=== PATIENT | female | born 1985 | race Caucasian/White ===

== ENCOUNTER 2017-11-01 15:11 | Outpatient (CLI) | payer BC ==
[2017-11-01 15:35] LABS: Appearance,Urine Clear (Clear); Bilirubin,Urine Negative (Negative); Blood,Urine Negative (Negative); Color,Urine Yellow; Glucose,Urine (UA) 3+ (Negative); Ketones,Urine 1+ (Negative); Leukocyte Esterase,Urine Negative (Negative); Nitrite,Urine Negative (Negative); PH, Urine 5.5 (5.0-8.0); Protein,Urine Trace (Negative); Specific Gravity,Urine 1.027 (1.001-1.035); Urobilinogen,Urine <2.0 mg/dL (<2.0)
[2017-11-01] MEDS ORDERED: ACETAMINOPHEN TAB 325 MG TAB PO STA (15:50)
[2017-11-01 16:15] LABS: Glucose,Whole Blood 168 mg/dL (75-99)
[2017-11-01] MEDS: LACTATED RINGERS 1,000 ML IV SCH ×2 (16:16→18:17)
[2017-11-01 17:14] VITALS: PULSE 96; RESP 17; TEMP 98.2
[2017-11-01 18:49] VITALS: BP 123/69
--- NOTE | 2017-12-21 10:47 | P.MSEPDOC ---
Presenting Problems - Arrival Data Date of Arrival on Unit: 11/01/17 Time of Arrival on Unit: 15:26 Mode of Transport: Ambulatory - Complaint OB-Reason for Admission/Chief Complaint: Headache, Other Comment: Patient to triage for persistent headache and abdominal cramping over the last three days. Medical History - Information : 1 Para: 0 Term: 0 : 0 Abortions: Spontaneous or Elective: 0 Number of Living Children: 0 - Gestational Age Gestational Age by FABIÁN (wks/days): 28 Weeks and 0 Days - History Complications: GDM Review of Systems - Review of Systems Constitutional: No problems Breast: No problems ENT: No problems Cardiovascular: No problems Respiratory: No problems Gastrointestinal: No problems Genitourinary: No problems Musculoskeletal: No problems Neurological: No problems Skin: No problems Vital Signs - Temperature Temperature: 98.2 F Temperature Source: Oral - Pulse Pulse Oximetery Pulse Rate: 96 Pulse Assessment Method: Pulse Oximetry - Respirations Respiratory Rate: 17 Oxygen Delivery Method: Room Air O2 Sat by Pulse Oximetry: 97 - Blood Pressure Right Arm Blood Pressure: 123/69 Blood Pressure Mean: 87 Blood Pressure Source: Automatic Cuff Medical Screen Scoring (Pre) - Cervical Exam Dilation: 0 cm = 0 Membranes: Intact - Uterine Contractions Frequency: N/A Duration: N/A Intensity: N/A - Maternal Vital Signs Maternal Temperature: N/A Maternal Blood Pressure: N/A Signs of Preeclampsia: N/A Maternal Respirations: N/A - Pain Assessment Pain Location and Character: Head, Abdomen Pain Scale Used: Numeric (1 - 10) Pain Intensity: 5 Pain Management Goal: 0 Pain Description: Cramping, Sharp Pain Radiation Location: n/a Pain Frequency: Intermittent Pain Duration: 3 Pain Duration Units: Days Pain Behavior: None Exhibited Effects of Pain: none Pain Aggravating Factors: None Pharmacological Interventions: Discuss Pain Med Options Non-Pharmacological Interventions: Darkened Room - Maternal Trauma Maternal Trauma: N/A - Assessment Baseline FHR: 140 Heart Rate - NICHD Category: Category I (Normal) = 0 NST: Reactive Position: N/A Station: N/A - Total Score Total Score (Pre): 0 - Level of Risk Level of Risk: Low (0-5) Physician Notification (Pre) - Physician Notified Physician Notified Date: 11/01/17 Physician Notified Time: 15:45 Physician/Practitioner Notifed:: Bernice Spoke With: Bernice New Order Received: Yes (see below) - Notification Comment Comment: Telephone orders received to perform acc-chek and call if greater than 200; administer 650mg regular tylenol; start IV and administer 1 liter LR fluid bolus. Call if patient does not begin to feel relief. Medical Screen Scoring (Post) - Cervical Exam Dilation: Exam Deferred Effacement: Exam Deferred Membranes: Intact - Uterine Contractions Frequency: N/A Duration: N/A Intensity: N/A - Maternal Vital Signs Maternal Temperature: N/A Maternal Blood Pressure: N/A Signs of Preeclampsia: N/A Maternal Respirations: N/A - Pain Assessment Pain Location and Character: Head, Abdomen Pain Scale Used: Numeric (1 - 10) Pain Intensity: 3 Pain Management Goal: 0 Pain Description: Cramping, Sharp Pain Radiation Location: none Pain Frequency: Intermittent Pain Duration: 3 Pain Duration Units: Days Pain Behavior: Vocalization Effects of Pain: none Pain Aggravating Factors: None Pharmacological Interventions: Discuss Pain Med Options Non-Pharmacological Interventions: Darkened Room - Maternal Trauma Maternal Trauma: N/A - Assessment Heart Rate: 135 Heart Rate - NICHD Category: Category I (Normal) = 0 NST: Reactive Position: N/A Station: N/A - Total Score Total Score (Post): 0 - Post Treatment Level of Risk Post Treatment Level of Risk: Low (0-5) Physician Notification (Post) - Physician Notified Physician Notified Date: 11/01/17 Physician Notified Time: 18:23 Physician/Practitioner Notified:: Bernice Spoke With: Bernice New Order Received: Yes (Discharge home) - Notification Comment Comment: Patient following up with Nive at scheduled appt tomorrow Disposition - Disposition OB Disposition: Discharge to home Discharge Date: 11/01/17 Discharge Time: 18:30 I agree with the RN Medical Screening Exam: Yes Risk & Benefit of care provided described in d/c instruction: Yes Diagnosis: RELATED CONDITIONS, UNSPECIFIED, SECOND TRIMESTER
== END 2017-11-01 18:30 | disposition home or self-care (01) ==
LOC: FBPOP 15:11
PROVIDERS: ATTEND Obstetrics & Gynecology
DX: O26.92 Pregnancy related conditions, unspecified, second trimester (principal); Z3A.28 28 weeks gestation of pregnancy
CPT/HCPCS: 59025; 81003; 82731; 99213

== ENCOUNTER 2017-11-23 10:54 | Outpatient (CLI) | payer BC ==
[2017-11-23 12:33] LABS: Appearance,Urine Clear (Clear); Bilirubin,Urine Negative (Negative); Blood,Urine Negative (Negative); Color,Urine Yellow; Glucose,Urine (UA) 1+ (Negative); Ketones,Urine Negative (Negative); Leukocyte Esterase,Urine Negative (Negative); Nitrite,Urine Negative (Negative); PH, Urine 5.5 (5.0-8.0); Protein,Urine Trace (Negative); Specific Gravity,Urine 1.022 (1.001-1.035); Urobilinogen,Urine <2.0 mg/dL (<2.0)
[2017-11-23 12:35] LABS: Basophils % (A) 0 %; Eosinophils % (A) 1 %; HCT 35.5 % (34.0-46.0); HGB 11.8 gm/dL (11.4-16.0); Lymphocytes # (A) 1.3 k/uL (1.0-4.8); Lymphocytes % (A) 17 %; MCH 28.4 pg (25.0-35.0); MCHC 33.4 g/dL (31.0-37.0); Mean Platelet Volume 10.1; Monocytes # (A) 0.4 k/uL (0-1.0); Monocytes % (A) 5 %; Neutrophils # (A) 6.1 k/uL (1.3-7.7); Neutrophils % (A) 77 %; Platelet Count 153 k/uL (150-450); RBC 4.18 m/uL (3.80-5.40); RDW 13.8 % (11.5-15.5); WBC 7.9 k/uL (3.8-10.6)
[2017-11-23 12:44] LABS: Uric Acid 1.9 mg/dL (3.7-7.4)
[2017-11-23 13:28] VITALS: RESP 18; TEMP 98.2
[2017-11-23 13:31] VITALS: BP 96/61; PULSE 68
--- NOTE | 2017-12-21 10:51 | P.MSEPDOC ---
Presenting Problems - Arrival Data Date of Arrival on Unit: 11/23/17 Time of Arrival on Unit: 10:54 Mode of Transport: Ambulatory - Complaint OB-Reason for Admission/Chief Complaint: PIH Medical History - Information : 1 Para: 0 Term: 0 : 0 Abortions: Spontaneous or Elective: 0 Number of Living Children: 0 - Gestational Age Gestational Age by FABIÁN (wks/days): 31 Weeks and 1 Days - History Complications: GDM Review of Systems - Review of Systems Constitutional: No problems Breast: No problems ENT: No problems Cardiovascular: No problems Respiratory: No problems Gastrointestinal: No problems Genitourinary: No problems Musculoskeletal: No problems Neurological: No problems Skin: No problems Vital Signs - Temperature Temperature: 98.2 F Temperature Source: Temporal Artery Scan - Pulse Right Brachial Pulse Rate: 68 Pulse Assessment Method: Automatic Cuff - Respirations Respiratory Rate: 18 Oxygen Delivery Method: Room Air - Blood Pressure Right Arm Blood Pressure: 96/61 Blood Pressure Mean: 72 Blood Pressure Source: Automatic Cuff Medical Screen Scoring (Pre) - Cervical Exam Dilation: Exam Deferred Effacement: Exam Deferred Membranes: Intact - Uterine Contractions Frequency: N/A Duration: N/A Intensity: N/A - Maternal Vital Signs Maternal Temperature: N/A Maternal Blood Pressure: N/A Signs of Preeclampsia: Headache = 1, Nausea/Vomiting = 1 Maternal Respirations: N/A - Pain Assessment Pain Scale Used: Numeric (1 - 10) Pain Intensity: 0 - Assessment Baseline FHR: 130 Heart Rate - NICHD Category: Category I (Normal) = 0 NST: Reactive Position: N/A Station: N/A - Total Score Total Score (Pre): 2 - Level of Risk Level of Risk: Low (0-5) Physician Notification (Pre) - Physician Notified Physician Notified Date: 11/23/17 Physician Notified Time: 12:10 Physician/Practitioner Notifed:: Dr Santizo Spoke With: Dr. Santizo New Order Received: Yes - Notification Comment Comment: obtain PIH labs Medical Screen Scoring (Post) - Cervical Exam Dilation: Exam Deferred Effacement: Exam Deferred Membranes: Intact - Uterine Contractions Frequency: N/A Duration: N/A Intensity: N/A - Maternal Vital Signs Maternal Temperature: N/A Maternal Blood Pressure: N/A Signs of Preeclampsia: N/A Maternal Respirations: N/A - Pain Assessment Pain Intensity: 0 - Maternal Trauma Maternal Trauma: N/A - Assessment Heart Rate: 130 Heart Rate - NICHD Category: Category I (Normal) = 0 NST: Reactive Position: N/A - Total Score Total Score (Post): 0 - Post Treatment Level of Risk Post Treatment Level of Risk: N/A Physician Notification (Post) - Physician Notified Physician Notified Date: 11/23/17 Physician Notified Time: 12:45 Physician/Practitioner Notified:: Dr Swain Spoke With: Dr. Santizo New Order Received: Yes - Notification Comment Comment: follow up in office tomorrow at scheduled appt, bring blood pressure machine with her to have it checked in the office Disposition - Disposition OB Disposition: Triage, Discharge to home, Written follow up instructions reviewed Discharge Date: 11/23/17 Discharge Time: 13:15 I agree with the RN Medical Screening Exam: Yes Risk & Benefit of care provided described in d/c instruction: Yes Diagnosis: RELATED CONDITIONS, UNSPECIFIED, THIRD TRIMESTER
== END 2017-11-23 13:15 | disposition home or self-care (01) ==
LOC: FBPOP 10:54
PROVIDERS: ATTEND Obstetrics & Gynecology
DX: O26.93 Pregnancy related conditions, unspecified, third trimester (principal); Z3A.31 31 weeks gestation of pregnancy
CPT/HCPCS: 59025; 81003; 84450; 84460; 84550; 85025; 99215

== ENCOUNTER 2017-12-21 15:59 | Outpatient (CLI) | payer BC ==
[2017-12-21 16:27] VITALS: BP 140/86; PULSE 68; RESP 16; TEMP 97.4
[2017-12-21 16:54] LABS: Basophils % (A) 0 %; Eosinophils % (A) 0 %; HCT 34.2 % (34.0-46.0); HGB 11.7 gm/dL (11.4-16.0); Lymphocytes # (A) 1.7 k/uL (1.0-4.8); Lymphocytes % (A) 18 %; MCH 28.1 pg (25.0-35.0); MCHC 34.2 g/dL (31.0-37.0); MCV 82.3 fL (80.0-100.0); Mean Platelet Volume 10.2; Monocytes # (A) 0.4 k/uL (0-1.0); Monocytes % (A) 5 %; Neutrophils # (A) 6.9 k/uL (1.3-7.7); Neutrophils % (A) 75 %; Platelet Count 155 k/uL (150-450); RBC 4.15 m/uL (3.80-5.40); RDW 14.3 % (11.5-15.5); WBC 9.3 k/uL (3.8-10.6)
[2017-12-21 16:57] LABS: Appearance,Urine Clear (Clear); Bacteria,Urine Rare /hpf; Bilirubin,Urine Negative (Negative); Blood,Urine Negative (Negative); Color,Urine Yellow; Glucose,Urine (UA) Negative (Negative); Ketones,Urine Negative (Negative); Leukocyte Esterase,Urine Negative (Negative); Mucus,Urine Few /hpf; Nitrite,Urine Negative (Negative); Protein,Urine 1+ (Negative); Specific Gravity,Urine 1.025 (1.001-1.035); Squamous Epithelial Cell,Urine <1 /hpf (0-4); Urobilinogen,Urine <2.0 mg/dL (<2.0); WBC,Urine 2 /hpf (0-5)
[2017-12-21 17:00] LABS: ALT 38 U/L (9-52); AST 28 U/L (14-36); Blood Urea Nitrogen 12 mg/dL (7-17); LDH 472 U/L (313-618); Uric Acid 3.3 mg/dL (3.7-7.4)
--- NOTE | 2017-12-31 09:57 | P.MSEPDOC ---
Presenting Problems - Arrival Data Date of Arrival on Unit: 12/21/17 Time of Arrival on Unit: 16:04 Mode of Transport: Wheelchair - Complaint Comment: Pt seen in office and sent to L&D for preeclampsia work up, pt had elevated blood pressure in office, 160/100 Medical History - Information : 1 Para: 0 Term: 0 : 0 Abortions: Spontaneous or Elective: 0 Number of Living Children: 0 - Gestational Age Gestational Age by FABIÁN (wks/days): 35 Weeks and 1 Days - History Complications: GDM Review of Systems - Review of Systems Constitutional: No problems Breast: No problems ENT: Nasal congestion Cardiovascular: No problems Respiratory: Wheezing Gastrointestinal: Constipation Genitourinary: No problems Musculoskeletal: No problems Neurological: No problems Skin: No problems Vital Signs - Temperature Temperature: 97.4 F Temperature Source: Temporal Artery Scan - Pulse Pulse Oximetery Pulse Rate: 68 Pulse Assessment Method: Automatic Cuff - Respirations Respiratory Rate: 16 Oxygen Delivery Method: Room Air O2 Sat by Pulse Oximetry: 97 - Blood Pressure Right Arm Blood Pressure: 140/86 Blood Pressure Mean: 104 Blood Pressure Source: Automatic Cuff Medical Screen Scoring (Pre) - Cervical Exam Dilation: Exam Deferred Effacement: Exam Deferred Membranes: Intact - Uterine Contractions Frequency: N/A Duration: N/A Intensity: N/A - Maternal Vital Signs Maternal Temperature: N/A Maternal Respirations: N/A - Pain Assessment Pain Scale Used: Numeric (1 - 10) Pain Intensity: 0 - Maternal Trauma Maternal Trauma: N/A - Assessment Baseline FHR: 120 Heart Rate - NICHD Category: Category I (Normal) = 0 NST: Reactive Position: N/A Station: N/A - Total Score Total Score (Pre): 0 - Level of Risk Level of Risk: Low (0-5) Physician Notification (Pre) - Notification Comment Comment: Discharge order recieved by Dr Bucio Disposition - Disposition OB Disposition: Discharge to home Discharge Date: 12/21/17 Discharge Time: 17:26 I agree with the RN Medical Screening Exam: Yes Risk & Benefit of care provided described in d/c instruction: Yes Diagnosis: GESTATIONAL HTN W/O SIGNIFICANT PROTEINURIA, THIRD TRIMESTER
== END 2017-12-21 17:26 ==
LOC: FBPOP 15:59
PROVIDERS: ATTEND Obstetrics & Gynecology Obstetrics
DX: O13.3 Gestational [pregnancy-induced] hypertension without significant proteinuria, third trimester (principal); Z3A.35 35 weeks gestation of pregnancy
CPT/HCPCS: 81001; 82565; 83615; 84450; 84460; 84520; 84550; 85025; 99215

== ENCOUNTER 2018-01-03 16:58 | Inpatient (IN) | payer BC ==
[2018-01-03 18:36] LABS: Appearance,Urine Clear (Clear); Bacteria,Urine Rare /hpf; Bilirubin,Urine Negative (Negative); Blood,Urine Negative (Negative); Color,Urine Yellow; Glucose,Urine (UA) Negative (Negative); Ketones,Urine Negative (Negative); Leukocyte Esterase,Urine Negative (Negative); Mucus,Urine Few /hpf; Nitrite,Urine Negative (Negative); PH, Urine 6.5 (5.0-8.0); Protein,Urine 3+ (Negative); RBC,Urine <1 /hpf (0-5); Specific Gravity,Urine 1.022 (1.001-1.035); Squamous Epithelial Cell,Urine 1 /hpf (0-4); WBC,Urine 1 /hpf (0-5)
[2018-01-03 18:51] LABS: Basophils % (A) 0 %; Eosinophils # (A) 0.1 k/uL (0-0.7); Eosinophils % (A) 1 %; HCT 33.9 % (34.0-46.0); HGB 11.6 gm/dL (11.4-16.0); Lymphocytes # (A) 1.7 k/uL (1.0-4.8); Lymphocytes % (A) 21 %; MCH 28.6 pg (25.0-35.0); MCHC 34.2 g/dL (31.0-37.0); MCV 83.5 fL (80.0-100.0); Mean Platelet Volume 11.6; Monocytes # (A) 0.4 k/uL (0-1.0); Monocytes % (A) 5 %; Neutrophils # (A) 5.8 k/uL (1.3-7.7); Neutrophils % (A) 71 %; Platelet Count 153 k/uL (150-450); RBC 4.05 m/uL (3.80-5.40); RDW 14.4 % (11.5-15.5); WBC 8.2 k/uL (3.8-10.6)
[2018-01-03 19:05] LABS: Uric Acid 3.3 mg/dL (3.7-7.4)
[2018-01-03 19:18] LABS: Glucose,Whole Blood 71 mg/dL (75-99)
[2018-01-03 19:26] LABS: Large Platelets Present
[2018-01-03 19:28] LABS: Polychromasia Present
[2018-01-03] MEDS ORDERED: TERBUTALINE 1 MG/ML VIAL SQ PRN ×2 (19:37→20:32)
[2018-01-03] MEDS ORDERED: OXYTOCIN 10 UNIT/ML 1 ML VIAL IM PRN ×2 (19:37→20:32)
[2018-01-03] MEDS ORDERED: CARBOPROST TROMETHAMINE 250 MCG/ML 1 ML AMP IM PRN ×2 (19:37→20:32)
[2018-01-03] MEDS ORDERED: LIDOCAINE 1% (PF) 10 MG/ML (30 ML SDV) SQ PRN ×2 (19:37→20:32)
[2018-01-03] MEDS ORDERED: METHYLERGONOVINE 0.2 MG/ML 1 ML AMP IM PRN ×2 (19:37→20:32)
[2018-01-03] MEDS ORDERED: DINOPROSTONE 10 MG INSERT.ER VAGINAL ONE (20:02)
[2018-01-03 20:27] VITALS: BMI 45.1
[2018-01-03] MEDS: LACTATED RINGERS 1,000 ML IV SCH (20:27)
--- NOTE | 2018-01-03 20:32 | P.HPOB ---
History of Present Illness H&P Date: 01/03/18 Chief Complaint: IUP @ 37 0/7 weeks, preeclampsia This is a 32 yo @ 37 weeks that presents from the office after elevated BP were noted, 140's/90's. she denies tolentino, visual changes or abdominal pain. On blood pressures in triage here on OB her blood pressures were noted to be 140s to 170s over 90s to 100. She was also noted to have 3+ proteinuria. She has been being watched for blood pressure in this and had labs done on 12/21 that were all normal in nature. She does have been elevated EFW at the 97th percentile, and polyhydramnios at 25 on that same date. Of note she is a gestational diabetic on insulin which was discontinued proximally 2 weeks ago for low blood sugars. Patient states that she has been continuing to follow the diabetic diet and her blood sugars have been lower over the last 2 weeks. Patient denies contractions today, notes good movement, no loss of fluid or vaginal bleeding. On blood work blood type of O+, rubella immune, RPR nonreactive, hepatitis B surface antigen negative, HIV negative, as stated above known gestational diabetic diet controlled currently Review of Systems Constitutional: Denies chills, Denies chronic headaches, Denies fatigue, Denies fever Eyes: bilateral loss of peripheral vision, bilateral tunnel vision/blind spots Ears, nose, mouth and throat: Denies headache Cardiovascular: Reports edema Respiratory: Denies cough, Denies dyspnea Gastrointestinal: Denies constipation, Denies diarrhea, Denies nausea, Denies vomiting Genitourinary: Reports Psychiatric: Reports anxiety, Reports depression Past Medical History Past Medical History: No Reported History Additional Past Medical History / Comment(s): Gestational diabetes 08/18/17 History of Any Multi-Drug Resistant Organisms: None Reported Past Surgical History: Orthopedic Surgery Smoking Status: Never smoker Medications and Allergies Home Medications Medication Instructions Recorded Confirmed Type Pnv,Calcium 72/Iron/Folic Acid 1 tab PO DAILY 06/17/17 12/21/17 History [ Plus Tablet] Insulin Lispro [humaLOG] 2 - 4 units SQ AC-TID 11/23/17 01/03/18 History Allergies Allergy/AdvReac Type Severity Reaction Status Date / Time bupropion [From Contrave] Allergy Rash/Hives Verified 12/21/17 16:01 naltrexone [From Contrave] Allergy Rash/Hives Verified 12/21/17 16:01 Exam Osteopathic Statement: *. No significant issues noted on an osteopathic structural exam other than those noted in the History and Physical/Consult. Vital Signs Temp Pulse Resp BP Pulse Ox 01/03/18 17:20 99.1 F 90 20 144/92 98 Intake and Output 01/03/18 01/03/18 01/03/18 06:59 14:59 22:59 Other: Weight 127.006 kg - OBG Physical Exam Abdomen: Gravid and appropriate for gestational age Cervix: 1/0/hi Uterus: enlarged Results Result Diagrams: 01/03/18 18:39 Abnormal Lab Results - Last 24 Hours (Table) 01/03/18 01/03/18 01/03/18 Range/Units 17:55 18:39 18:39 Hct 33.9 L (34.0-46.0) % POC Glucose (mg/dL) (75-99) mg/dL Uric Acid 3.3 L (3.7-7.4) mg/dL Urine Protein 3+ H (Negative) Urine Bacteria Rare H (None) /hpf Urine Mucus Few H (None) /hpf 01/03/18 Range/Units 19:15 Hct (34.0-46.0) % POC Glucose (mg/dL) 71 L (75-99) mg/dL Uric Acid (3.7-7.4) mg/dL Urine Protein (Negative) Urine Bacteria (None) /hpf Urine Mucus (None) /hpf Assessment and Plan (1) Preeclampsia Current Visit: Yes Status: Acute Code(s): O14.90 - UNSPECIFIED PRE-ECLAMPSIA , UNSPECIFIED TRIMESTER SNOMED Code(s): 078323185 (2) GDM (gestational diabetes mellitus) Current Visit: Yes Status: Acute Code(s): O24.419 - GESTATIONAL DIABETES MELLITUS IN , UNSP CONTROL SNOMED Code(s): 11042998 (3) Obesity Current Visit: Yes Status: Acute Code(s): E66.9 - OBESITY, UNSPECIFIED SNOMED Code(s): 546174367 Plan: Given her elevated blood pressures and 3+ proteinuria Will admit for induction of labor. Plan is reviewed with the patient in detail and Cervidil induction is started. We will monitor blood pressures closely. Stadol would be ordered along with epidural per pt request. All questions are answered patient states understanding.
[2018-01-03] MEDS ORDERED: BUTORPHANOL 1 MG/ML 1 ML VIAL IV PRN (20:35)
[2018-01-03] MEDS ORDERED: LABETALOL 5 MG/ML VIAL MDV IVP STA (20:36)
[2018-01-03] MEDS ORDERED: LACTATED RINGERS 1,000 ML IV SCH (20:45)
[2018-01-03] MEDS ORDERED: AMPICILLIN 2,000 MG in SODIUM CHLORIDE 0.9% 100 ML IVPB ONE (23:00)
[2018-01-04 01:02] LABS: Hemoglobin A1C 5.8 % (4.0-6.0)
[2018-01-04] MEDS: AMPICILLIN 1,000 MG in SODIUM CHLORIDE 0.9% 50 ML IVPB SCH ×2 (03:49→10:48)
[2018-01-04] MEDS ORDERED: ACETAMINOPHEN IV (For NPO) 1,000 MG in EMPTY BAG 1 BAG IVPB ONE (04:04)
[2018-01-04] MEDS: LACTATED RINGERS 1,000 ML IV SCH ×3 (04:49→20:08)
[2018-01-04] MEDS: OXYTOCIN 20 UNITS/1000 ML NS 1,000 ML IV SCH ×2 (05:24→20:06)
[2018-01-04 05:46] LABS: Glucose,Whole Blood 81 mg/dL (75-99)
[2018-01-04] MEDS ORDERED: LIDOCAINE URO-JET JELLY 2% 5 ML KIT URETHRAL ONE (12:36)
[2018-01-04] MEDS ORDERED: OXYTOCIN 10 UNIT/ML 1 ML VIAL ONE (15:04)
[2018-01-04] MEDS ORDERED: NALBUPHINE 10 MG/ML VIAL (10ML MDV) ONE (15:04)
[2018-01-04] MEDS ORDERED: MORPHINE SULFATE (PF) 0.3 MG/0.3 ML SYR ONE (15:04)
[2018-01-04] MEDS ORDERED: CARBOPROST TROMETHAMINE 250 MCG/ML 1 ML AMP IM ONE (15:04)
[2018-01-04] MEDS ORDERED: ONDANSETRON 4 MG/2 ML VIAL ONE (15:04)
[2018-01-04] MEDS ORDERED: MORPHINE SULFATE 2 MG/ML SYRINGE IVP PRN (15:45)
[2018-01-04] MEDS ORDERED: NALOXONE 0.4 MG/ML 1 ML VIAL IV PRN (15:45)
[2018-01-04] MEDS ORDERED: diphenhydrAMINE 50 MG/ML 1 ML VIAL IVP PRN (15:45)
[2018-01-04] MEDS ORDERED: MAGNESIUM SULFATE WATER PMX IVPB STA (17:03)
[2018-01-04] MEDS ORDERED: WATER FOR INJECTION IVPB STA (17:03)
[2018-01-04] MEDS ORDERED: CITRIC ACID-SODIUM CITRATE 15 ML CUP PO ONE (17:15)
[2018-01-04] MEDS ORDERED: LACTATED RINGERS 1,000 ML IV ONE (17:15)
[2018-01-04] MEDS: ONDANSETRON 4 MG/2 ML VIAL IVP PRN (19:26)
[2018-01-04] MEDS ORDERED: hydrALAZINE HCL 20 MG/ML 1 ML VIAL IVP PRN (19:53)
[2018-01-04] MEDS: MAGNESIUM SULFATE-WATER PMX 20 GM in WATER FOR INJECTION 1 500ML.BAG IV SCH (20:07)
[2018-01-04] MEDS ORDERED: hydrALAZINE HCL 20 MG/ML 1 ML VIAL IVP ONE (20:39)
[2018-01-04] MEDS ORDERED: NIFEdipine XL 30 MG TAB.ER.24 PO SCH (21:45)
[2018-01-05] MEDS: AMPICILLIN 1,000 MG in SODIUM CHLORIDE 0.9% 50 ML IVPB SCH (02:48)
[2018-01-05] MEDS: OXYTOCIN 20 UNITS/1000 ML NS 1,000 ML IV SCH ×2 (02:49)
[2018-01-05] MEDS: ONDANSETRON 4 MG/2 ML VIAL IVP PRN (03:14)
[2018-01-05] MEDS: MAGNESIUM SULFATE-WATER PMX 20 GM in WATER FOR INJECTION 1 500ML.BAG IV SCH (04:14)
[2018-01-05] MEDS: LACTATED RINGERS 1,000 ML IV SCH (05:55)
[2018-01-05] MEDS ORDERED: LACTATED RINGERS 500 ML IV SCH (10:15)
--- NOTE | 2018-01-05 10:28 | P.PNOBGPC ---
Subjective - Subjective Principal diagnosis: Preeclampsia Interval history: Complains of feeling dizzy when she was briefly up out of bed. Nausea has resolved. She tolerated some clear liquids this morning. Denies headaches, visual changes, upper abdominal pain, nausea, vomiting, shortness of breath, chest pain. Patient reports: Reports appetite normal, Reports pain well controlled, Denies voiding normally, Denies ambulating normally, Denies nauseated : doing well Objective - Vital Signs Latest vital signs: Vital Signs Temp Pulse Resp BP Pulse Ox 01/05/18 08:00 97.6 F 88 16 128/74 96 01/05/18 06:00 20 01/05/18 03:20 97.5 F L 92 20 152/81 96 01/05/18 01:45 18 01/04/18 23:39 98 F 109 H 20 141/70 95 01/04/18 22:00 20 01/04/18 20:45 95 01/04/18 19:10 99.0 F 98 20 150/77 95 Intake and Output 01/04/18 01/05/18 01/05/18 22:59 06:59 14:59 Output Total 1050 400 300 Balance -1050 -400 -300 Output: Urine 350 400 300 Estimated Blood Loss 700 Other: Voiding Method Indwelling Catheter Indwelling Catheter # Emeses 1 1 - Exam Lungs: bilateral: normal Extremities: Present: edema (Tense, 3+. DTRs 1+.) Abdomen: Present: soft, other (Obese) Incision: Present: normal, dry, intact, dressed Uterus: Present: normal, firm. Absent: tenderness Assessment and Plan (1) GDM (gestational diabetes mellitus) Current Visit: Yes Status: Acute Code(s): O24.419 - GESTATIONAL DIABETES MELLITUS IN , UNSP CONTROL SNOMED Code(s): 65210386 (2) Obesity Current Visit: Yes Status: Acute Code(s): E66.9 - OBESITY, UNSPECIFIED SNOMED Code(s): 387508175 (3) Preeclampsia Current Visit: Yes Status: Acute Code(s): O14.90 - UNSPECIFIED PRE-ECLAMPSIA , UNSPECIFIED TRIMESTER SNOMED Code(s): 157710182 (4) S/P section Current Visit: Yes Status: Acute Code(s): Z98.891 - HISTORY OF UTERINE SCAR FROM PREVIOUS SURGERY SNOMED Code(s): 482815515 (5) Polyhydramnios Current Visit: Yes Status: Acute Code(s): O40.9XX0 - POLYHYDRAMNIOS, UNSP TRIMESTER, NOT APPLICABLE OR UNSP SNOMED Code(s): 78753618 Plan: Currently on magnesium sulfate 2 g/h, nifedipine 30 mg every day. Blood pressures have ranged from the 120s to 150s over 70s and 80s. She is asymptomatic. Her urine output is low which I believe is more a function of inadequate fluid resuscitation, not sign of severe preeclampsia. Fluid bolus now, increase oral fluid intake. Will decrease magnesium to 1 g per hour and light of low urine output. Repeat labs now. Plan is to discontinue magnesium at 24 hours assuming clinical picture remains stable. She will likely need an increase in her Procardia from 30 mg to 60 mg.
[2018-01-05] MEDS ORDERED: LACTATED RINGERS 1,000 ML IV SCH (11:30)
[2018-01-05 11:35] LABS: HCT 32.8 % (34.0-46.0); HGB 11.1 gm/dL (11.4-16.0); MCH 28.2 pg (25.0-35.0); MCHC 33.9 g/dL (31.0-37.0); MCV 83.2 fL (80.0-100.0); Mean Platelet Volume 11.5; RBC 3.94 m/uL (3.80-5.40); RDW 14.7 % (11.5-15.5); WBC 14.1 k/uL (3.8-10.6)
[2018-01-05 11:43] LABS: ALT 31 U/L (9-52); AST 44 U/L (14-36); Blood Urea Nitrogen 9 mg/dL (7-17); Platelet Count 164 k/uL (150-450); Uric Acid 4.2 mg/dL (3.7-7.4)
[2018-01-05] MEDS ORDERED: diphenhydrAMINE 50 MG CAP PO PRN (12:19)
[2018-01-05] MEDS ORDERED: diphenhydrAMINE 25 MG CAP PO PRN (12:19)
[2018-01-05] MEDS ORDERED: METOCLOPRAMIDE 5 MG/ML 2 ML VIAL IVP PRN (12:19)
[2018-01-05] MEDS ORDERED: ZOLPIDEM 5 MG TAB PO PRN (12:19)
[2018-01-05] MEDS ORDERED: diphenhydrAMINE 50 MG/ML 1 ML VIAL IVP PRN ×2 (12:19)
[2018-01-05] MEDS ORDERED: SIMETHICONE 80 MG CHEWABLE PO PRN (12:19)
[2018-01-05] MEDS ORDERED: ACETAMINOPHEN TAB 325 MG TAB PO PRN (12:19)
[2018-01-05] MEDS: HYDROcodone/APAP 5-325MG 1 EACH TAB PO PRN ×2 (14:21→21:04)
--- NOTE | 2018-01-05 18:17 | P.PN ---
Progress Note - Text Date: 01/05/2018 Time: 17:53 The patient is status post section Vital signs stable VAS: 0-10 Patient has no complaints of pain. The patient incurred some minimal itching yesterday, this itching is now subsiding. Pain meds to be managed by service.
[2018-01-05] MEDS: IBUPROFEN 600 MG TAB PO PRN (18:38)
[2018-01-05] MEDS ORDERED: NIFEdipine XL 30 MG TAB.ER.24 PO SCH (21:00)
[2018-01-05] MEDS: SENNOSIDES-DOCUSATE SODIUM 1 EACH TAB PO SCH (21:05)
[2018-01-06] MEDS: IBUPROFEN 600 MG TAB PO PRN ×3 (05:11→20:54)
--- NOTE | 2018-01-06 07:24 | P.PN ---
Subjective Progress Note Date: 01/06/18 Slept well. Positive flatus. No headache visual changes or right upper quadrant pain. Urinating frequently. Objective - Vital Signs Vital signs: Vital Signs Temp 98.3 F 01/06/18 00:00 Pulse 93 01/06/18 00:00 Resp 16 01/06/18 06:00 BP 141/92 01/06/18 04:00 Pulse Ox 97 01/06/18 04:00 Intake & Output 01/05/18 01/06/18 01/06/18 18:59 06:59 18:59 Intake Total 200 400 Output Total 1700 2275 Balance -1500 -1875 Intake: IV 200 Lactated Ringers 1,000 ml 200 @ 100 mls/hr IV .Q10H LEATHA Rx#:[id number] Oral 400 Output: Urine 1700 2275 Other: # Voids 1 - Constitutional General appearance: Present: morbidly obese - EENT Eyes: Present: PERRLA ENT: Present: hearing grossly normal - Neck Neck: Present: normal ROM - Respiratory Respiratory: bilateral: CTA - Cardiovascular Rhythm: regular - Gastrointestinal General gastrointestinal: Present: normal bowel sounds - Genitourinary Genitourinary Comment(s): Incision clean and dry, well approximated, Steri-Strips applied. - Integumentary Integumentary Comment(s): 2-3+ edema, normal reflexes at +1 bilaterally. Integumentary: Present: normal - Neurologic Neurologic: Present: CNII-XII intact - Musculoskeletal Musculoskeletal: Present: gait normal, strength equal bilaterally - Psychiatric Psychiatric: Present: A&O x's 3, appropriate affect, intact judgment & insight - Labs CBC & Chem 7: 01/05/18 11:20 01/05/18 11:20 Labs: Abnormal Lab Results - Last 24 Hours (Table) 01/05/18 01/05/18 Range/Units 11:20 11:20 WBC 14.1 H (3.8-10.6) k/uL Hgb 11.1 L (11.4-16.0) gm/dL Hct 32.8 L (34.0-46.0) % AST 44 H (14-36) U/L Assessment and Plan Assessment: Postoperative day #2, doing well. Plan: Continue postoperative care today. Circumcision now. Likely discharge home tomorrow on Procardia. Time with Patient: Less than 30
[2018-01-06] MEDS: HYDROcodone/APAP 5-325MG 1 EACH TAB PO PRN (11:24)
[2018-01-06] MEDS: SENNOSIDES-DOCUSATE SODIUM 1 EACH TAB PO SCH ×2 (20:43→20:56)
[2018-01-06 21:07] VITALS: RESP 18
[2018-01-07] MEDS: IBUPROFEN 600 MG TAB PO PRN (04:47)
[2018-01-07 07:51] VITALS: BP 136/83; PULSE 75; TEMP 98.6
[2018-01-07] MEDS: SENNOSIDES-DOCUSATE SODIUM 1 EACH TAB PO SCH (08:10)
--- NOTE | 2018-01-07 08:33 | P.DS ---
Providers Date of admission: 01/03/18 19:38 Expected date of discharge: 01/07/18 Attending physician: Lynn Santizo Primary care physician: Stated None Hospital Course: Is a 32-year-old white female 1 para 0 EDC 01/24/2018 at 37 weeks gestation. Patient presented to labor and delivery for induction for - induced hypertension. Initial blood pressure 155/77. Her is remarkable for large for gestational age fetus, gestational diabetes, polyhydramnios, and maternal obesity. She also had positive group B strep cultures. Please see dictated history and physical for details. Cytotec was placed, labor was commenced using oxytocin the following morning. Patient had arrest of dilatation and descent and decision was made to proceed with section. She underwent a primary low transverse section and gave to a liveborn male infant with scores of 9 and 9 at one and 5 minutes. She had a nuchal cord 1 that was reduced. weighed 4220 g or 9 lbs. 5 oz. Please see dictated operative note for details. Postoperatively patient was managed with magnesium sulfate for 24 hours. Blood pressures remained elevated, they stabilized on Procardia 60 mg XL once daily. Blood pressure this morning is stable in the 130s over 80s. Patient denies headache visual changes or right upper quadrant pain. Circumcision on her has been performed. Extremities still reveal +2 edema, normal reflexes. Fundus is firm and in the midline, symmetric and 18 week size. Chest is clear. Incision is clean and dry, intact with Steri-Strips applied. Patient is being discharged home this morning in good condition. I have given her prescription for Procardia XL 60 mg to continue taking once every morning. She will take her blood pressure readings every morning and presented to the office with me in 1 week for review. I've given her prescription for breast pump. She will continue taking her vitamins daily. She will call with any fevers shakes or chills, foul smelling or copious lochia, passage of large blood clots, with any redness drainage or tenderness of the incision, or indeed with any problems difficulties or concerns. She is reminded of the symptoms of preeclampsia as well as. Patient Condition at Discharge: Good Plan - Discharge Summary Discharge Rx Participant: No New Discharge Prescriptions: No Action Pnv,Calcium 72/Iron/Folic Acid [ Plus Tablet] 1 tab PO DAILY Insulin Lispro [humaLOG] 2 - 4 units SQ AC-TID Discharge Medication List Pnv,Calcium 72/Iron/Folic Acid [ Plus Tablet] 1 tab PO DAILY 06/17/17 [ History] Insulin Lispro [humaLOG] 2 - 4 units SQ AC-TID 11/23/17 [History] Follow up Appointment(s)/Referral(s): Lynn Santizo MD [STAFF PHYSICIAN] - 1 Week
== END 2018-01-07 10:15 | disposition home or self-care (01) | DRG 765 ==
LOC: FBPOP 16:58 → 4FBP 19:38
PROVIDERS: ADMIT Obstetrics & Gynecology Obstetrics; ATTEND Obstetrics & Gynecology
PROC: 10D00Z1 Extraction of Products of Conception, Low, Open Approach (ICD-10-PCS; principal; 2018-01-03)
DX: O14.94 Unspecified pre-eclampsia, complicating childbirth (principal); O40.3XX0 Polyhydramnios, third trimester, not applicable or unspecified; E66.01 Morbid (severe) obesity due to excess calories; O61.0 Failed medical induction of labor; O69.81X0 Labor and delivery complicated by cord around neck, without compression, not applicable or unspecified; O24.429 Gestational diabetes mellitus in childbirth, unspecified control; O99.214 Obesity complicating childbirth; O99.824 Streptococcus B carrier state complicating childbirth; O36.63X0 Maternal care for excessive fetal growth, third trimester, not applicable or unspecified; Z37.0 Single live birth; Z3A.37 37 weeks gestation of pregnancy
CPT/HCPCS: 59025; 81001; 82565; 83036; 84450; 84460; 84520; 84550; 85025; 85027; 88307; 99213

== ENCOUNTER 2018-03-21 21:19 | Emergency (ER) | payer SELFPAY ==
[2018-03-21] MEDS ORDERED: MORPHINE SULFATE 4 MG/ML SYRINGE IM STA (22:32)
--- NOTE | 2018-03-21 23:03 | XR ---
EXAMINATION TYPE: XR lumbosacral spine min 4V DATE OF EXAM: 03/21/2018 COMPARISON: NONE HISTORY: Pain TECHNIQUE: 5 views FINDINGS: The vertebra have normal alignment. Posterior most are intact. Sacroiliac joints are normal . There is no compression fracture. IMPRESSION: Negative lumbar spine exam.
[2018-03-21] MEDS ORDERED: ACET/COD 300 MG/30 MG STARTER PACK 6 TAB BTL PO STA (23:18)
--- NOTE | 2018-03-21 23:18 | ED ---
Back Pain HPI - General Source: patient, family, RN notes reviewed Limitations: no limitations <Tez Waite - Last Filed: 03/21/18 23:15> <Halima Sandra - Last Filed: 03/22/18 22:58> - General Chief Complaint: Back Pain/Injury Stated Complaint: back pain/trouble walking Time Seen by Provider: 03/21/18 22:07 - History of Present Illness Initial Comments: 32-year-old female presents emergency Department with chief complaint of low back pain. Patient states that she's had pain ever since her spinal for her C- section. Patient states though the pain today is different she states that she went to move a dresser and has low back pain along her lumbar, sacral region. Patient denies any bowel bladder incontinence or retention. Patient states the pain is worse with movement and much better when laying flat. Patient states that she has no lower extremity weakness, paresthesias. She denies any abdominal pain including nausea vomiting diarrhea constipation (Tez Waite) - Related Data Previous Rx's Medication Instructions Recorded Cyclobenzaprine [Flexeril] 10 mg PO TID PRN #15 tab 03/21/18 Ibuprofen [Motrin] 600 mg PO Q8HR PRN #30 tab 03/21/18 Allergies Allergy/AdvReac Type Severity Reaction Status Date / Time bupropion [From Contrave] Allergy Rash/Hives Verified 03/21/18 23:13 naltrexone [From Contrave] Allergy Rash/Hives Verified 03/21/18 23:13 Review of Systems ROS Other: All systems not noted in ROS Statement are negative. <Tez Waite - Last Filed: 03/21/18 23:15> ROS Other: All systems not noted in ROS Statement are negative. <Halima Sandra - Last Filed: 03/22/18 22:58> ROS Statement: Those systems with pertinent positive or pertinent negative responses have been documented in the HPI. Past Medical History Past Medical History: No Reported History Additional Past Medical History / Comment(s): Gestational diabetes 08/18/17 History of Any Multi-Drug Resistant Organisms: None Reported Past Surgical History: Orthopedic Surgery Past Anesthesia/Blood Transfusion Reactions: Postoperative Nausea & Vomiting ( PONV) Past Psychological History: Anxiety Smoking Status: Never smoker Past Alcohol Use History: None Reported Past Drug Use History: None Reported - Past Family History Mother Family Medical History: Diabetes Mellitus, Hypertension <Tez Waite - Last Filed: 03/21/18 23:15> General Exam Limitations: no limitations General appearance: alert, in no apparent distress Neck exam: Present: normal inspection, full ROM. Absent: tenderness, meningismus, lymphadenopathy Respiratory exam: Present: normal lung sounds bilaterally. Absent: respiratory distress, wheezes, rales, rhonchi, stridor Cardiovascular Exam: Present: regular rate, normal rhythm, normal heart sounds. Absent: systolic murmur, diastolic murmur, rubs, gallop, clicks GI/Abdominal exam: Present: soft, normal bowel sounds. Absent: distended, tenderness, guarding, rebound, rigid Extremities exam: Present: other (Lower extremity strength equal bilaterally, pain with left straight leg raise, neurovascular intact lower extremity equal color equal warmth) Back exam: Present: normal inspection, full ROM (Moderate discomfort), tenderness (Diffuse lumbar greater on the left lower), paraspinal tenderness. Absent: CVA tenderness (R), CVA tenderness (L), vertebral tenderness Neurological exam: Present: alert, oriented X3, CN II-XII intact, reflexes normal. Absent: motor sensory deficit <Tez Waite - Last Filed: 03/21/18 23:15> Vital Signs 03/21/18 03/21/18 21:21 23:42 Temperature 98.4 F 98.0 F Pulse Rate 92 78 Respiratory 20 16 Rate Blood Pressure 145/84 146/77 O2 Sat by Pulse 99 97 Oximetry Medical Decision Making <Tez Waite - Last Filed: 03/21/18 23:15> <Halima Sandra P - Last Filed: 03/22/18 22:58> - Medical Decision Making 32-year-old female presented for low back pain. Patient has a lumbar strain secondary to moving a dresser. She does have some ongoing back pain from spinal though this is not acute pain. Patient has no signs of infection no red flag symptoms. Patient will follow-up with PCP, orthopedics as needed. (Tez Waite) I was available for consultation in the emergency department. The history and physical exam were done by the Midlevel Provider. Medical decision making was done by the Midlevel Provider. The Midlevel Provider did not contact me for this patient's care. I was not directly involved in this patient's care. (Halima Sandra) Disposition Is patient prescribed a controlled substance at d/c from ED?: No Time of Disposition: 23:18 <Tez Waite - Last Filed: 03/21/18 23:15> <Halima Sandra - Last Filed: 03/22/18 22:58> Clinical Impression: Strain of lumbar region Disposition: HOME SELF-CARE Condition: Stable Instructions: Acute Low Back Pain (ED) Additional Instructions: Please return to the Emergency Department if symptoms worsen or any other concerns. Prescriptions: Cyclobenzaprine [Flexeril] 10 mg PO TID PRN #15 tab PRN Reason: Muscle Spasm Ibuprofen [Motrin] 600 mg PO Q8HR PRN #30 tab PRN Reason: Pain Referrals: Reginaldo Hussein MD [Primary Care Provider] - 1-2 days
[2018-03-21 23:44] VITALS: BP 146/77; PULSE 78; RESP 16; TEMP 98
== END 2018-03-21 23:43 | disposition home or self-care (01) ==
LOC: EC 21:19
DX: S39.012A Strain of muscle, fascia and tendon of lower back, initial encounter (principal); Z88.8 Allergy status to other drugs, medicaments and biological substances; X50.9XXA Other and unspecified overexertion or strenuous movements or postures, initial encounter
CPT/HCPCS: 72110; 99283; 96372; J2270

== ENCOUNTER → 2019-01-19 | Outpatient (CLI) | payer BC ==
--- NOTE | 2019-01-20 08:02 | ECHOF ---
Referral Reason:R06.00 dyspnea MEASUREMENTS -------- HEIGHT: 167.6 cm WEIGHT: 113.4 kg BP: RVIDd: 3.8 cm (< 3.3) IVSd: 1.4 cm (0.6 - 1.1) LVIDd: 4.5 cm (3.9 - 5.3) LVPWd: 1.5 cm (0.6 - 1.1) IVSs: 1.7 cm LVIDs: 3.0 cm LVPWs: 2.1 cm LAESV Index (A-L): 29.56 ml/m Ao Diam: 2.7 cm (2.0 - 3.7) AV Cusp: 2.1 cm (1.5 - 2.6) LA Diam: 3.5 cm (2.7 - 3.8) EPSS: 0.6 cm MV E Cleve: 0.85 m/s MV DecT: 245 ms MV A Cleve: 0.75 m/s MV E/A Ratio: 1.14 RAP: 5.00 mmHg RVSP: 21.50 mmHg MV EF SLOPE: 104.33 mm/s (70 - 150) MV EXCURSION: 1.75 cm (> 18.000) FINDINGS -------- Sinus rhythm. This was a technically adequate study. The left ventricular size is normal. There is moderate concentric left ventricular hypertrophy. O verall left ventricular systolic function is normal with, an EF between 55 - 60 %. The diastolic fi lling pattern is normal for the age of the patient. The right ventricle is moderately enlarged. Left atrium is mildly dilated by volume. The right atrial size is normal. Interatrial and interventricular septum intact. The aortic valve is trileaflet and appears structurally normal. There is no evidence of aortic regu rgitation. There is no evidence of aortic stenosis. There is trace mitral regurgitation. Mild tricuspid regurgitation present. There is no evidence of pulmonary hypertension. The right v entricular systolic pressure, as measured by Doppler, is 21.50mmHg. There is no pulmonic regurgitation present. The aortic root size is normal. IVC not well visualized There is no pericardial effusion. CONCLUSIONS -------- 1. Sinus rhythm. 2. This was a technically adequate study. 3. The left ventricular size is normal. 4. There is moderate concentric left ventricular hypertrophy. 5. Overall left ventricular systolic function is normal with, an EF between 55 - 60 %. 6. The diastolic filling pattern is normal for the age of the patient. 7. The right ventricle is moderately enlarged. 8. Left atrium is mildly dilated by volume. 9. The right atrial size is normal. 10. Interatrial and interventricular septum intact. 11. The aortic valve is trileaflet and appears structurally normal. 12. There is no evidence of aortic regurgitation. 13. There is no evidence of aortic stenosis. 14. There is trace mitral regurgitation. 15. Mild tricuspid regurgitation present. 16. There is no evidence of pulmonary hypertension. 17. The right ventricular systolic pressure, as measured by Doppler, is 21.50mmHg. 18. There is no pulmonic regurgitation present. 19. The aortic root size is normal. 20. IVC not well visualized 21. There is no pericardial effusion. EXPORT SALES MANAGER: Lore Armenta RDCS
== END | disposition home or self-care (01) ==
LOC: RADECHMAIN 12:58
PROVIDERS: ATTEND Nurse Practitioner Adult Health
DX: I07.1 Rheumatic tricuspid insufficiency (principal)
CPT/HCPCS: 93306

== ENCOUNTER → 2021-04-22 | Outpatient (CLI) | payer OTHER ==
--- NOTE | 2021-04-22 13:02 | XR ---
EXAMINATION TYPE: XR chest 2V DATE OF EXAM: 04/22/2021 COMPARISON: NONE HISTORY: Asthma TECHNIQUE: Frontal and lateral views of the chest are obtained. FINDINGS: There is no focal air space opacity, pleural effusion, or pneumothorax seen. The cardiac silhouette size is within normal limits. The osseous structures are intact. IMPRESSION: No acute cardiopulmonary process.
== END | disposition home or self-care (01) ==
LOC: RADXRMAIN 10:29
PROVIDERS: ATTEND Family Medicine
DX: J45.909 Unspecified asthma, uncomplicated (principal)
CPT/HCPCS: 71046

== ENCOUNTER 2023-10-17 01:37 | Inpatient (IN) | payer BC, OTHER ==
--- NOTE | 2023-10-17 02:36 | ED ---
Back Pain HPI - General Source: patient Limitations: no limitations <Micheal Lora - Last Filed: 10/17/23 03:59> <Jesse Fisher - Last Filed: 10/17/23 06:52> - General Chief Complaint: Back Pain/Injury Stated Complaint: back pain neck pain Time Seen by Provider: 10/17/23 02:23 - History of Present Illness Initial Comments: 37-year-old female presenting to the ED with complaints of back pain. Patient reports she was having some lasagna for dinner tonight shortly after dinner started to experience nausea and had an episode of nonbloody emesis. Following this episode of emesis, started to notice some pain across the left side of her neck, left upper back, and left arm. Since onset, she reports that symptom has seemingly worsened in severity prompting presentation to the ED for further evaluation. Patient also notes she has had 4 episodes of nonbloody diarrhea today. No abdominal pain. No chest pain or shortness of breath. No fever or chills. No changes in bladder habits. No other complaints at this time. (Micheal Lora) - Related Data Previous Rx's Medication Instructions Recorded Cyclobenzaprine [Flexeril] 10 mg PO TID PRN #15 tab 03/21/18 Ibuprofen [Motrin] 600 mg PO Q8HR PRN #30 tab 03/21/18 Allergies Allergy/AdvReac Type Severity Reaction Status Date / Time bupropion [From Contrave] Allergy Rash/Hives Verified 03/21/18 23:13 naltrexone [From Contrave] Allergy Rash/Hives Verified 03/21/18 23:13 Review of Systems ROS Other: All systems not noted in ROS Statement are negative. <Micheal Lora - Last Filed: 10/17/23 03:59> ROS Other: All systems not noted in ROS Statement are negative. <Jesse Fisher - Last Filed: 10/17/23 06:52> ROS Statement: Those systems with pertinent positive or pertinent negative responses have been documented in the HPI. Past Medical History Past Medical History: No Reported History Additional Past Medical History / Comment(s): Gestational diabetes 08/18/17 History of Any Multi-Drug Resistant Organisms: None Reported Past Surgical History: Orthopedic Surgery Past Anesthesia/Blood Transfusion Reactions: Postoperative Nausea & Vomiting (PONV) Past Psychological History: Anxiety Past Alcohol Use History: None Reported Past Drug Use History: None Reported - Past Family History Mother Family Medical History: Diabetes Mellitus, Hypertension <Micheal Lora - Last Filed: 10/17/23 03:59> General Exam Limitations: no limitations General appearance: alert, in no apparent distress, obese Eye exam: Present: normal appearance Neck exam: Present: normal inspection Respiratory exam: Present: normal lung sounds bilaterally Cardiovascular Exam: Present: regular rate GI/Abdominal exam: Present: soft (No tenderness to palpation. No rebound guarding or rigidity.) Back exam: Present: other (No midline spinal tenderness to palpation.) Neurological exam: Present: alert, oriented X3 <Micheal Lora - Last Filed: 10/17/23 03:59> Course Vital Signs 10/17/23 10/17/23 10/17/23 02:03 03:08 05:45 Temperature 97.9 F Pulse Rate 86 86 85 Respiratory 18 18 18 Rate Blood Pressure 183/106 190/109 179/123 O2 Sat by Pulse 95 94 L 96 Oximetry Medical Decision Making - Lab Data Result diagrams: 10/17/23 03:03 10/17/23 03:03 <Micheal Lora - Last Filed: 10/17/23 03:59> - Lab Data Result diagrams: 10/17/23 03:03 10/17/23 03:03 <Jesse Fisher - Last Filed: 10/17/23 06:52> - Medical Decision Making Was pt. sent in by a medical professional or institution ([facility], CLOUD SYSTEMS ARCHITECT, urgent care, hospital, or [facility]...) When possible be specific @ -[No] Did you speak to anyone other than the patient for history (EMS, parent, family, police, friend...)? What history was obtained from this source @ -[No] Did you review nursing and triage notes (agree or disagree)? Why? @ -[I reviewed and agree with nursing and triage notes] Were old charts reviewed (outside hosp., previous admission, EMS record, old EKG, old radiological studies, urgent care reports/EKG's, [facility] records)? Report findings @ -[No old charts were reviewed] Differential Diagnosis (chest pain, altered mental status, abdominal pain women, abdominal pain men, vaginal bleeding, weakness, fever, dyspnea, syncope, headache, dizziness, GI bleed, back pain, seizure, CVA, palpatations, mental health, musculoskeletal)? @ -Differential Musculoskeletal Muscular strain, contusion, ligament sprain, fracture, arthritis, septic arthritis, bursitis, cellulitis, muscle spasm, nerve compression, DVT, arterial occlusion, herpes zoster, electrolyte abnormality, tumor.... This is not meant to be in all inclusive list EKG interpreted by me (3pts min.). @ -[As above] X-rays interpreted by me (1pt min.). @ -[None done] CT interpreted by me (1pt min.). @ -[None done] U/S interpreted by me (1pt. min.). @ -[None done] What testing was considered but not performed or refused? (CT, X-rays, U/S, labs)? Why? @ -[None] What meds were considered but not given or refused? Why? @ -[None] Did you discuss the management of the patient with other professionals (professionals i.e. , PA, CLOUD SYSTEMS ARCHITECT, lab, RT, psych nurse, director of social work, software test engineer, teacher, patient safety officer, high risk case manager)? Give summary @ -[No] Was smoking cessation discussed for >3mins.? @ -[No] Was critical care preformed (if so, how long)? @ -[No] Were there social determinants of health that impacted care today? How? (Homelessness, low income, unemployed, alcoholism, drug addiction, transportation, low edu. Level, literacy, decrease access to med. care, retirement, rehab)? @ -[No] Was there de-escalation of care discussed even if they declined (Discuss DNR or withdrawal of care, Hospice)? DNR status @ -[No] What co-morbidities impacted this encounter? (DM, HTN, Smoking, COPD, CAD, Cancer, CVA, ARF, Chemo, Hep., AIDS, mental health diagnosis, sleep apnea, morbid obesity)? @ -[None] Was patient admitted / discharged? Hospital course, mention meds given and route, prescriptions, significant lab abnormalities, going to OR and other pertinent info. @ -[hospital course] Undiagnosed new problem with uncertain prognosis? @ -[No] Drug Therapy requiring intensive monitoring for toxicity (Heparin, Nitro, Insulin, Cardizem)? @ -[No] Were any procedures done? @ -[No] Diagnosis/symptom? @ -[default] Acute, or Chronic, or Acute on Chronic? @ -[default] Uncomplicated (without systemic symptoms) or Complicated (systemic symptoms)? @ -[default] Side effects of treatment? @ -[No] Exacerbation, Progression, or Severe Exacerbation? @ -[No] Poses a threat to life or bodily function? How? (Chest pain, [place], [place], pneumonia, PE, COPD, DKA, ARF, appy, cholecystitis, CVA, Diverticulitis, Homicidal, Suicidal, threat to staff... and all critical care pts) @ -[No] (Micheal Lora) Patient care signed out to me by physician assistant pressman, Micheal. Briefly, patient is a 37-year-old female presents to the emergency department with insidious onset of left subscapular pain that radiates to the left upper arm. Patient has history of diabetes and hypertension. She has not been compliant with her medications. States that the pain is more sharp in nature. Denies any associated shortness of breath. Plan at signout was to follow-up with pending l abs and EKG. Patient's troponin elevated at 0.105. Patient is evaluated at bedside no acute distress. My EKG interpretation: Ventricular rate 83, sinus rhythm,. 161, cures 96, QTc 432. No TN prolongation, no QTC prolongation, T wave inversions in the anterior septal leads, and aVL. Overall, this EKG is concerning for ischemic changes Critical care time, 33 minutes. Laboratory evaluation obtained. D-dimer is - 0.19. CT angiography of the aorta obtained for concerns of dissection given that patient has atypical chest pain. CT is negative for any acute processes. Patient started on heparin and given aspirin. Will be admitted with consultation to cardiology's. Clinical presentation consistent with NSTEMI (Jesse Fisher) - Lab Data Lab Results 10/17/23 10/17/23 10/17/23 Range/Units 03:03 03:03 03:03 WBC 10.2 (3.8-10.6) k/uL RBC 5.14 (3.80-5.40) m/uL Hgb 15.0 (11.4-16.0) gm/dL Hct 43.4 (34.0-46.0) % MCV 84.4 (80.0-100.0) fL MCH 29.2 (25.0-35.0) pg MCHC 34.6 (31.0-37.0) g/dL RDW 13.4 (11.5-15.5) % Plt Count 200 (150-450) k/uL MPV 10.3 Neutrophils % 66 % Lymphocytes % 23 % Monocytes % 6 % Eosinophils % 3 % Basophils % 1 % Neutrophils # 6.7 (1.3-7.7) k/uL Lymphocytes # 2.3 (1.0-4.8) k/uL Monocytes # 0.6 (0-1.0) k/uL Eosinophils # 0.3 (0-0.7) k/uL Basophils # 0.1 (0-0.2) k/uL PT 10.9 (10.0-12.5) sec INR 1.0 (<1.2) APTT 25.6 (22.0-30.0) sec D-Dimer (<0.60) mg/L FEU Sodium 137 (137-145) mmol/L Potassium 3.7 (3.5-5.1) mmol/L Chloride 103 (98-107) mmol/L Carbon Dioxide 24 (22-30) mmol/L Anion Gap 10 mmol/L BUN 11 (7-17) mg/dL Creatinine 0.56 (0.52-1.04) mg/dL Est GFR (CKD-EPI)AfAm >90 (>60 ml/min/1.73 sqM) Est GFR (CKD-EPI)NonAf >90 (>60 ml/min/1.73 sqM) Glucose 264 H (74-99) mg/dL Calcium 9.6 (8.4-10.2) mg/dL Magnesium 1.8 (1.6-2.3) mg/dL Total Bilirubin 0.6 (0.2-1.3) mg/dL AST 33 (14-36) U/L ALT 48 H (4-34) U/L Alkaline Phosphatase 95 (38-126) U/L Troponin I (0.000-0.034) ng/mL Total Protein 8.2 (6.3-8.2) g/dL Albumin 4.7 (3.5-5.0) g/dL Amylase 56 (30-110) U/L Lipase 161 (23-300) U/L Urine Color Urine Appearance (Clear) Urine pH (5.0-8.0) Ur Specific Strawberry (1.001-1.035) Urine Protein (Negative) Urine Glucose (UA) (Negative) Urine Ketones (Negative) Urine Blood (Negative) Urine Nitrite (Negative) Urine Bilirubin (Negative) Urine Urobilinogen (<2.0) mg/dL Ur Leukocyte Esterase (Negative) Influenza Type A (PCR) (Not Detectd) Influenza Type B (PCR) (Not Detectd) RSV (PCR) (Not Detectd) SARS-CoV-2 (PCR) (Not Detectd) 10/17/23 10/17/23 10/17/23 Range/Units 03:03 03:03 03:03 WBC (3.8-10.6) k/uL RBC (3.80-5.40) m/uL Hgb (11.4-16.0) gm/dL Hct (34.0-46.0) % MCV (80.0-100.0) fL MCH (25.0-35.0) pg MCHC (31.0-37.0) g/dL RDW (11.5-15.5) % Plt Count (150-450) k/uL MPV Neutrophils % % Lymphocytes % % Monocytes % % Eosinophils % % Basophils % % Neutrophils # (1.3-7.7) k/uL Lymphocytes # (1.0-4.8) k/uL Monocytes # (0-1.0) k/uL Eosinophils # (0-0.7) k/uL Basophils # (0-0.2) k/uL PT (10.0-12.5) sec INR (<1.2) APTT (22.0-30.0) sec D-Dimer 0.19 (<0.60) mg/L FEU Sodium (137-145) mmol/L Potassium (3.5-5.1) mmol/L Chloride (98-107) mmol/L Carbon Dioxide (22-30) mmol/L Anion Gap mmol/L BUN (7-17) mg/dL Creatinine (0.52-1.04) mg/dL Est GFR (CKD-EPI)AfAm (>60 ml/min/1.73 sqM) Est GFR (CKD-EPI)NonAf (>60 ml/min/1.73 sqM) Glucose (74-99) mg/dL Calcium (8.4-10.2) mg/dL Magnesium (1.6-2.3) mg/dL Total Bilirubin (0.2-1.3) mg/dL AST (14-36) U/L ALT (4-34) U/L Alkaline Phosphatase (38-126) U/L Troponin I 0.105 H* (0.000-0.034) ng/mL Total Protein (6.3-8.2) g/dL Albumin (3.5-5.0) g/dL Amylase (30-110) U/L Lipase (23-300) U/L Urine Color Urine Appearance (Clear) Urine pH (5.0-8.0) Ur Specific Strawberry (1.001-1.035) Urine Protein (Negative) Urine Glucose (UA) (Negative) Urine Ketones (Negative) Urine Blood (Negative) Urine Nitrite (Negative) Urine Bilirubin (Negative) Urine Urobilinogen (<2.0) mg/dL Ur Leukocyte Esterase (Negative) Influenza Type A (PCR) Not Detected (Not Detectd) Influenza Type B (PCR) Not Detected (Not Detectd) RSV (PCR) Not Detected (Not Detectd) SARS-CoV-2 (PCR) Not Detected (Not Detectd) 10/17/23 Range/Units 05:58 WBC (3.8-10.6) k/uL RBC (3.80-5.40) m/uL Hgb (11.4-16.0) gm/dL Hct (34.0-46.0) % MCV (80.0-100.0) fL MCH (25.0-35.0) pg MCHC (31.0-37.0) g/dL RDW (11.5-15.5) % Plt Count (150-450) k/uL MPV Neutrophils % % Lymphocytes % % Monocytes % % Eosinophils % % Basophils % % Neutrophils # (1.3-7.7) k/uL Lymphocytes # (1.0-4.8) k/uL Monocytes # (0-1.0) k/uL Eosinophils # (0-0.7) k/uL Basophils # (0-0.2) k/uL PT (10.0-12.5) sec INR (<1.2) APTT (22.0-30.0) sec D-Dimer (<0.60) mg/L FEU Sodium (137-145) mmol/L Potassium (3.5-5.1) mmol/L Chloride (98-107) mmol/L Carbon Dioxide (22-30) mmol/L Anion Gap mmol/L BUN (7-17) mg/dL Creatinine (0.52-1.04) mg/dL Est GFR (CKD-EPI)AfAm (>60 ml/min/1.73 sqM) Est GFR (CKD-EPI)NonAf (>60 ml/min/1.73 sqM) Glucose (74-99) mg/dL Calcium (8.4-10.2) mg/dL Magnesium (1.6-2.3) mg/dL Total Bilirubin (0.2-1.3) mg/dL AST (14-36) U/L ALT (4-34) U/L Alkaline Phosphatase (38-126) U/L Troponin I (0.000-0.034) ng/mL Total Protein (6.3-8.2) g/dL Albumin (3.5-5.0) g/dL Amylase (30-110) U/L Lipase (23-300) U/L Urine Color Colorless Urine Appearance Clear (Clear) Urine pH 5.5 (5.0-8.0) Ur Specific Strawberry >1.050 H (1.001-1.035) Urine Protein Trace H (Negative) Urine Glucose (UA) Trace H (Negative) Urine Ketones Negative (Negative) Urine Blood Negative (Negative) Urine Nitrite Negative (Negative) Urine Bilirubin Negative (Negative) Urine Urobilinogen <2.0 (<2.0) mg/dL Ur Leukocyte Esterase Negative (Negative) Influenza Type A (PCR) (Not Detectd) Influenza Type B (PCR) (Not Detectd) RSV (PCR) (Not Detectd) SARS-CoV-2 (PCR) (Not Detectd) Disposition <Micheal Lora - Last Filed: 10/17/23 03:59> Decision Time: 06:52 <Jesse Fisher - Last Filed: 10/17/23 06:52> Clinical Impression: NSTEMI (non-ST elevated myocardial infarction) Disposition: ADMITTED IP TO THIS HOSP Condition: Serious Referrals: Trina Cervantes DO [Primary Care Provider] - 1-2 days
[2023-10-17 03:10] LABS: Basophils # (A) 0.1 k/uL (0-0.2); Basophils % (A) 1 %; Eosinophils # (A) 0.3 k/uL (0-0.7); Eosinophils % (A) 3 %; HCT 43.4 % (34.0-46.0); Lymphocytes # (A) 2.3 k/uL (1.0-4.8); Lymphocytes % (A) 23 %; MCH 29.2 pg (25.0-35.0); MCHC 34.6 g/dL (31.0-37.0); MCV 84.4 fL (80.0-100.0); Mean Platelet Volume 10.3; Monocytes # (A) 0.6 k/uL (0-1.0); Monocytes % (A) 6 %; Neutrophils # (A) 6.7 k/uL (1.3-7.7); Neutrophils % (A) 66 %; Platelet Count 200 k/uL (150-450); RBC 5.14 m/uL (3.80-5.40); RDW 13.4 % (11.5-15.5); WBC 10.2 k/uL (3.8-10.6)
[2023-10-17 03:18] LABS: Partial Thromboplastin Time 25.6 sec (22.0-30.0); Prothrombin Time 10.9 sec (10.0-12.5)
[2023-10-17 03:27] LABS: ALT 48 U/L (4-34); AST 33 U/L (14-36); African American GFR (CKD) >90 (>60 ml/min/1.73 sqM); Albumin 4.7 g/dL (3.5-5.0); Alkaline Phosphatase 95 U/L (38-126); Amylase 56 U/L (30-110); Anion Gap 10 mmol/L; Blood Urea Nitrogen 11 mg/dL (7-17); Calcium 9.6 mg/dL (8.4-10.2); Carbon Dioxide 24 mmol/L (22-30); Chloride 103 mmol/L (98-107); Glucose 264 mg/dL (74-99); Lipase 161 U/L (23-300); Magnesium 1.8 mg/dL (1.6-2.3); Non-African American GFR(CKD) >90 (>60 ml/min/1.73 sqM); Potassium 3.7 mmol/L (3.5-5.1); Sodium 137 mmol/L (137-145); Total Bilirubin 0.6 mg/dL (0.2-1.3); Total Protein 8.2 g/dL (6.3-8.2)
--- NOTE | 2023-10-17 05:11 | XR ---
EXAM: XR Chest, 2 Views CLINICAL HISTORY: ITS.REASON XR Reason: Chest Pain TECHNIQUE: Frontal and lateral views of the chest. COMPARISON: No relevant prior studies available. FINDINGS: Lungs: No consolidation or mass. Pleural space: No effusion. Heart: No cardiomegaly. Bones/joints: No acute findings. IMPRESSION: No acute cardiopulmonary process.
[2023-10-17 06:21] LABS: Appearance,Urine Clear (Clear); Bilirubin,Urine Negative (Negative); Blood,Urine Negative (Negative); Color,Urine Colorless; Glucose,Urine (UA) Trace (Negative); Ketones,Urine Negative (Negative); Leukocyte Esterase,Urine Negative (Negative); Nitrite,Urine Negative (Negative); PH, Urine 5.5 (5.0-8.0); Protein,Urine Trace (Negative); Urobilinogen,Urine <2.0 mg/dL (<2.0)
[2023-10-17 06:32] LABS: Specific Gravity,Urine >1.050 (1.001-1.035)
--- NOTE | 2023-10-17 06:46 | CT ---
EXAM: CT Angiography Chest and Abdomen With Intravenous Contrast CLINICAL HISTORY: ITS.REASON CT Reason: suspect dissection TECHNIQUE: Axial computed tomographic angiography images of the chest and abdomen with intravenous contrast. CTDI is 22.29 mGy and DLP is 963.15 mGy-cm. This CT exam was performed using one or more of the following dose reduction techniques: automated exposure control, adjustment of the mA and/or kV according to patient size, and/or use of iterative reconstruction technique. MIP reconstructed images were created and reviewed. COMPARISON: No relevant prior studies available. FINDINGS: VASCULATURE: Aorta: No acute findings. No aortic aneurysm. No dissection. Pulmonary arteries: Unremarkable as visualized. No pulmonary embolism is identified. Great vessels of aortic arch: No acute findings. No dissection. No occlusion or significant stenosis. Celiac trunk and mesenteric arteries: No acute findings. No occlusion or significant stenosis. Renal arteries: No acute findings. No occlusion or significant stenosis. CHEST: Lungs: Unremarkable. No mass. No consolidation. Pleural space: Unremarkable. No significant effusion. No pneumothorax. Heart: Unremarkable. No cardiomegaly. No significant pericardial effusion. ABDOMEN: Liver: Diffusely hypoattenuating liver. No mass. Gallbladder and bile ducts: Unremarkable. No calcified stones. No ductal dilation. Pancreas: Unremarkable. No ductal dilation. No mass. Spleen: Unremarkable. No splenomegaly. Adrenals: Unremarkable. No mass. Kidneys and ureters: Unremarkable. No hydronephrosis. No solid mass. Stomach and bowel: Unremarkable. No obstruction. No mucosal thickening. Intraperitoneal space: Unremarkable. No significant fluid collection. No free air. CHEST and ABDOMEN: Bones/joints: No acute fracture. No dislocation. Bilateral L5 pars defects. Soft tissues: Unremarkable. Lymph nodes: Unremarkable. No enlarged lymph nodes. IMPRESSION: 1. No aortic dissection or aortic aneurysm. 2. Hepatic steatosis.
[2023-10-17] MEDS ORDERED: NITROGLYCERIN SL TABS 0.4 MG TAB SUBLINGUAL PRN (06:49)
[2023-10-17] MEDS: HEPARIN SODIUM 1,000 UN/ML (10ML VL) IV ONE (07:27)
[2023-10-17] MEDS: HEPARIN SOD,PORK IN 0.45% NACL 25,000 UNIT in 0.45% NACL 1 250ML.BAG IV SCH (07:30)
[2023-10-17] MEDS: ASPIRIN 81 MG PO STA (07:33)
[2023-10-17] MEDS: lisinopriL 5 MG TAB PO SCH (09:03)
--- NOTE | 2023-10-17 11:18 | P.HPIM ---
History of Present Illness this is a pleasant 37 years old female with no significant past medical history Presents because of upper back pain that started 8 hours prior to hospitalization felt like sharp pain getting worse with laying back Patient rated at 8/10 but now is better with pain medication Associated with 1 episode of vomiting this morning but that was stopped. No more vomiting and abdominal pain or diarrhea no urinary symptoms, she had mild h eadache which is controlled with pain medication No weakness or numbness She denies smoking alcohol or illicit drugs patient is hemodynamically stable, CBC, INR, BMP, LFTs are unremarkable Urine analysis is negative for infection (Influenza A and type B, RSV, SARS (coronavirus) are undetected CTA of the chest and abdomen showing no aortic dissection or aneurysm Chest x-rays negative for acute process EKG shows sinus rhythm at [address]-T changes Patient was started on heparin drip, aspirin 81 mg 1 admitted with cardiology consult Review of Systems Review of systems CONSTITUTIONAL: No fever, no malaise, no fatigue. HEENT: No recent visual problems or hearing problems. Denied any sore throat. CARDIOVASCULAR: No orthopnea, PND, no palpitations, no syncope. PULMONARY: No shortness of breath, no cough, no hemoptysis. GASTROINTESTINAL: No diarrhea, no nausea, no vomiting, no abdominal pain. Normoactive bowel sounds. NEUROLOGICAL: No headaches, no weakness, no numbness. HEMATOLOGICAL: Denies any bleeding or petechiae. GENITOURINARY: Denies any burning micturition, frequency, or urgency. MUSCULOSKELETAL/RHEUMATOLOGICAL: Denies any joint pain, swelling, or any muscle pain. ENDOCRINE: Denies any polyuria or polydipsia. Past Medical History Past Medical History: No Reported History Additional Past Medical History / Comment(s): Gestational diabetes 08/18/17 History of Any Multi-Drug Resistant Organisms: None Reported Past Surgical History: Orthopedic Surgery Past Anesthesia/Blood Transfusion Reactions: Postoperative Nausea & Vomiting (PONV) Past Psychological History: Anxiety Past Alcohol Use History: None Reported Past Drug Use History: None Reported - Past Family History Mother Family Medical History: Diabetes Mellitus, Hypertension Medications and Allergies Home Medications Medication Instructions Recorded Confirmed Type Cyclobenzaprine [Flexeril] 10 mg PO TID PRN #15 tab 03/21/18 Rx Ibuprofen [Motrin] 600 mg PO Q8HR PRN #30 tab 09/17/18 Rx Allergies Allergy/AdvReac Type Severity Reaction Status Date / Time bupropion [From Contrave] Allergy Rash/Hives Verified 03/21/18 23:13 naltrexone [From Contrave] Allergy Rash/Hives Verified 03/21/18 23:13 Physical Exam Vitals: Vital Signs Temp Pulse Resp BP Pulse Ox 10/17/23 09:00 80 18 167/72 95 10/17/23 08:15 85 18 98/66 96 10/17/23 07:34 92 18 170/103 94 L 10/17/23 05:45 85 18 179/123 96 10/17/23 03:08 86 18 190/109 94 L 10/17/23 02:03 97.9 F 86 18 183/106 95 Intake and Output 10/16/23 10/17/23 10/17/23 22:59 06:59 14:59 Other: Weight 113.398 kg -GENERAL: The patient is alert and oriented x3, not in any acute distress. obese HEENT: Pupils are round and equally reacting to light. EOMI. No scleral icterus. No conjunctival pallor. Normocephalic, atraumatic. No pharyngeal erythema. No thyromegaly. CARDIOVASCULAR: S1 and S2 present. No murmurs, rubs, or gallops. PULMONARY: Chest is clear to auscultation, no wheezing , no crackles. ABDOMEN: Soft, nontender, nondistended, normoactive bowel sounds. No palpable organomegaly. MUSCULOSKELETAL: No joint swelling or deformity. EXTREMITIES: No cyanosis, clubbing, or pedal edema. NEUROLOGICAL: Gross neurological examination did not reveal any focal deficits. SKIN: No rashes. no petechiae. Results CBC & Chem 7: 10/17/23 03:03 10/17/23 03:03 Labs: Abnormal Lab Results - Last 24 Hours (Table) 10/17/23 10/17/23 10/17/23 Range/Units 03:03 03:03 05:58 Glucose 264 H (74-99) mg/dL ALT 48 H (4-34) U/L Troponin I 0.105 H* (0.000-0.034) ng/mL Ur Specific [place] >1.050 H (1.001-1.035) Urine Protein Trace H (Negative) Urine Glucose (UA) Trace H (Negative) 10/17/23 Range/Units 07:52 Glucose (74-99) mg/dL ALT (4-34) U/L Troponin I 0.059 H* (0.000-0.034) ng/mL Ur Specific [place] (1.001-1.035) Urine Protein (Negative) Urine Glucose (UA) (Negative) Assessment and Plan Assessment: elevated troponin, rule out colostomy Upper back pain could be secondary to her cardiac disease versus musculoskeletal Obesity Plan: Continue with heparin drip Continue with aspirin 81 mg Cartilage consult Check echocardiogram Labs and medication were reviewed.. Continue same treatment. Continue with symptomatic treatment. Resume home medication. Monitor labs and vitals. DVT and GI prophylaxis. Further recommendations as per clinical course of the patient DVT prophylaxis: heparin GI Prophylaxis: Pepcid PT/OT: Pending Prognosis is guarded
--- NOTE | 2023-10-17 11:27 | P.CRDCN ---
History of Present Illness Consult date: 10/17/23 History of present illness: History of present illness: This is a 37-year-old female with no previous cardiac history. She has a past medical history of diabetes mellitus type 2, hypertension, enlarged ventricle per patient, asthma. We have been asked to evaluate the patient for non-ST elevated myocardial infarction. Patient states that last evening she started vomiting and she developed upper arm bilateral pain that went into the shoulders and into the back of her shoulder. She denies having any chest pain. No shortness of breath. She did have some sweating. No lightheadedness or dizziness. She denies any recent viral infection. Patient is seen today in the emergency center waiting for a bed on the cardiac stepdown unit. Patient has been started on heparin drip. Patient presented with blood pressure 190/109 and now 170/103. Heart rate 92. EKG sinus rhythm no acute ST-T wave changes Chest x-ray: No acute process CT angiogram of the chest and abdomen revealed no aortic dissection or aortic aneurysm. Hepatic steatosis. CBC INR, D-dimer, electrolytes renal function all within normal limits. Glucose 264. Troponin 0.105 and 0.059. ALT 48 otherwise liver function test are normal. Lipase 161. Urinalysis trace protein and trace glucose. Influenza A, influenza B, RSV, COVID-19 not detected. Home cardiac medications: None Echocardiogram performed 01/19/2019 revealed EF of 55 to 60%, moderate concentric left ventricular hypertrophy, right ventricle moderately enlarged. Trace mitral regurgitation. Mild tricuspid regurgitation. No pulmonary hypertension. Review Of Systems: At the time of my exam: CONSTITUTIONAL: Denies fever or chills. HEENT: Denies blurred vision, vision changes, or eye pain. Denies hemoptysis CARDIOVASCULAR: Denies chest pain. Denies orthopnea. Denies PND. Denies palpitations RESPIRATORY: Denies shortness of breath. GASTROINTESTINAL: Denies abdominal pain. Denies nausea or vomiting. HEMATOLOGIC: Denies bleeding disorders. GENITOURINARY: Denies any blood in urine. SKIN: Denies pruitis. Denies rash. Physical examination: Gen: This is a 37-year-old female in no acute distress VS: reviewed HEENT: Head is atraumatic, normocephalic. Pupils equal, round. Sclerae is anicteric. NECK: Supple. No JVD. LUNGS: Clear to auscultation. No wheezes or rhonchi. No intercostal retractions. HEART: Regular rate and rhythm. No murmur. ABDOMEN: Soft No tenderness. EXTREMITIES: No pedal edema. No calf tenderness. NEUROLOGICAL: Patient is awake, alert and oriented x3. Assessment: Possible non-ST elevated myocardial infarction Accelerated hypertension Diabetes mellitus type 2 Right ventricle moderately enlarged Moderate concentric left ventricular hypertrophy Plan: Start patient on aspirin 81 mg daily and atorvastatin 40 mg at bedtime Continue heparin drip Start patient on lisinopril 5 mg dailypatient has had this in the past Obtain third troponin, lipid panel, A1c Obtain 2-D echocardiogram and Doppler study to assess cardiac structure and function Further recommendations to follow based upon clinical course Thank you kindly for this consultation. Nurse practitioner note has been reviewed, I agree with documented findings and plan of care. Patient was seen and examined. Past Medical History Past Medical History: No Reported History Additional Past Medical History / Comment(s): Gestational diabetes 08/18/17 History of Any Multi-Drug Resistant Organisms: None Reported Past Surgical History: Orthopedic Surgery Past Anesthesia/Blood Transfusion Reactions: Postoperative Nausea & Vomiting (PONV) Past Psychological History: Anxiety Past Alcohol Use History: None Reported Past Drug Use History: None Reported - Past Family History Mother Family Medical History: Diabetes Mellitus, Hypertension Medications and Allergies Home Medications Medication Instructions Recorded Confirmed Type Cyclobenzaprine [Flexeril] 10 mg PO TID PRN #15 tab 03/21/18 Rx Ibuprofen [Motrin] 600 mg PO Q8HR PRN #30 tab 03/21/18 Rx Allergies Allergy/AdvReac Type Severity Reaction Status Date / Time bupropion [From Contrave] Allergy Rash/Hives Verified 03/21/18 23:13 naltrexone [From Contrave] Allergy Rash/Hives Verified 03/21/18 23:13 Physical Exam Vitals: Vital Signs Temp Pulse Resp BP Pulse Ox 10/17/23 07:34 92 18 170/103 94 L 10/17/23 05:45 85 18 179/123 96 10/17/23 03:08 86 18 190/109 94 L 10/17/23 02:03 97.9 F 86 18 183/106 95 Intake and Output 10/16/23 10/17/23 10/17/23 22:59 06:59 14:59 Other: Weight 113.398 kg Results 10/17/23 03:03 10/17/23 03:03 Cardiac Enzymes 10/17/23 10/17/23 Range/Units 03:03 03:03 AST 33 (14-36) U/L Troponin I 0.105 H* (0.000-0.034) ng/mL Coagulation 10/17/23 Range/Units 03:03 PT 10.9 (10.0-12.5) sec APTT 25.6 (22.0-30.0) sec CBC 10/17/23 Range/Units 03:03 WBC 10.2 (3.8-10.6) k/uL RBC 5.14 (3.80-5.40) m/uL Hgb 15.0 (11.4-16.0) gm/dL Hct 43.4 (34.0-46.0) % Plt Count 200 (150-450) k/uL Comprehensive Metabolic Panel 10/17/23 Range/Units 03:03 Sodium 137 (137-145) mmol/L Potassium 3.7 (3.5-5.1) mmol/L Chloride 103 (98-107) mmol/L Carbon Dioxide 24 (22-30) mmol/L BUN 11 (7-17) mg/dL Creatinine 0.56 (0.52-1.04) mg/dL Glucose 264 H (74-99) mg/dL Calcium 9.6 (8.4-10.2) mg/dL AST 33 (14-36) U/L ALT 48 H (4-34) U/L Alkaline Phosphatase 95 (38-126) U/L Total Protein 8.2 (6.3-8.2) g/dL Albumin 4.7 (3.5-5.0) g/dL Current Medications Generic Name Dose Route Start Last Admin Trade Name Freq PRN Reason Stop Dose Admin Aspirin 325 mg 10/18/23 09:00 Aspirin 325 Mg Tab PO DAILY LEATHA Heparin Sodium (Porcine) 0 unit 10/17/23 06:47 Heparin Sodium 1,000 Un/Ml (10ml Vl) IV PER PROTOCOL PRN Low PTT Protocol Heparin Sodium/Sodium Chloride 250 mls @ 10.001 mls/hr 10/17/23 07:00 10/17/23 07:30 25,000 unit/ Sodium Chloride IV 8.819 units/kg/hr .Q24H LEATHA 10.001 mls/hr Administration Protocol 8.819 UNITS/KG/HR Nitroglycerin 0.4 mg 10/17/23 06:49 Nitroglycerin Sl Tabs 0.4 Mg Tab SUBLINGUAL Q5M PRN Chest Pain Intake and Output 10/16/23 10/17/23 10/17/23 22:59 06:59 14:59 Other: Weight 113.398 kg 10/17/23 03:03 10/17/23 03:03
[2023-10-17] MEDS: HEPARIN SODIUM 1,000 UN/ML (10ML VL) IV PRN (15:47)
[2023-10-17] MEDS: ACETAMINOPHEN TAB 500 MG TAB PO STA (18:40)
[2023-10-17] MEDS: FAMOTIDINE 20 MG/2 ML VIAL IV SCH (21:02)
[2023-10-17] MEDS: ATORVASTATIN 40 MG TAB PO SCH (21:02)
[2023-10-18] MEDS: METOPROLOL TARTRATE 25 MG TAB PO SCH (08:25)
[2023-10-18] MEDS: ASPIRIN 81 MG PO SCH ×2 (08:25→16:27)
[2023-10-18] MEDS ORDERED: ALPRAZolam 0.25 MG TAB PO PRN (08:59)
[2023-10-18] MEDS ORDERED: NITROGLYCERIN SL TABS 0.4 MG TAB SUBLINGUAL PRN (08:59)
[2023-10-18] MEDS ORDERED: ALPRAZolam 0.5 MG TAB PO PRN (08:59)
[2023-10-18] MEDS ORDERED: ASPIRIN 325 MG TAB PO SCH (09:00)
[2023-10-18] MEDS: ATORVASTATIN 80 MG TAB PO STA (09:15)
[2023-10-18] MEDS: ASPIRIN 325 MG TAB PO STA (09:16)
[2023-10-18] MEDS: SODIUM CHLORIDE 0.9% 1,000 ML in EMPTY BAG 1 BAG IV SCH (09:26)
[2023-10-18 10:05] LABS: Glucose,Whole Blood 309 mg/dL (70-110)
--- NOTE | 2023-10-18 10:24 | P.PN ---
Subjective HISTORY OF PRESENT ILLNESS: 10/17/2023 This is a 37-year-old female with no previous cardiac history. She has a past medical history of diabetes mellitus type 2, hypertension, enlarged ventricle per patient, asthma. We have been asked to evaluate the patient for non-ST elevated myocardial infarction. Patient states that last evening she started vomiting and she developed upper arm bilateral pain that went into the shoulders and into the back of her shoulder. She denies having any chest pain. No shortness of breath. She did have some sweating. No lightheadedness or dizziness. She denies any recent viral infection. Patient is seen today in the emergency center waiting for a bed on the cardiac stepdown unit. Patient has been started on heparin drip. Patient presented with blood pressure 190/109 and now 170/103. Heart rate 92. EKG sinus rhythm no acute ST-T wave changes Chest x-ray: No acute process CT angiogram of the chest and abdomen revealed no aortic dissection or aortic aneurysm. Hepatic steatosis. CBC INR, D-dimer, electrolytes renal function all within normal limits. Glucose 264. Troponin 0.105 and 0.059. ALT 48 otherwise liver function test are normal. Lipase 161. Urinalysis trace protein and trace glucose. Influenza A, influenza B, RSV, COVID-19 not detected. Home cardiac medications: None Echocardiogram performed 01/19/2019 revealed EF of 55 to 60%, moderate concentric left ventricular hypertrophy, right ventricle moderately enlarged. Trace mitral regurgitation. Mild tricuspid regurgitation. No pulmonary hypertension. 10/18/2023 Patient examined this morning at the bedside. Patient remains in the emergency room. Patient currently denies any chest pain or pressure. She denies any shortness of breath. She remains on IV heparin. Blood pressure is better controlled today. Most recent reading 134/89. PHYSICAL EXAM: VITAL SIGNS: Reviewed. GENERAL: Well-developed in no acute distress. NECK: Supple. No JVD or thyromegaly LUNGS: Respirations even and unlabored. Lungs essentially clear to auscultation bilaterally. HEART: Regular rate and rhythm. S1 and S2 heard. EXTREMITIES: Normal range of motion. No clubbing or cyanosis. Peripheral pulses intact. No lower extremity edema ASSESSMENT: Hypertensive urgency, improved Elevated troponins, may be secondary to uncontrolled blood pressure on admission, cannot rule out underlying CAD Diabetes mellitus type 2 Right ventricle moderately enlarged Moderate concentric left ventricular hypertrophy History of preeclampsia per patient Family history of CAD PLAN: Continue IV heparin Continue current cardiac medications Add metoprolol 25 mg twice a day 2D echo has been ordered. Await results. Patient to undergo cardiac catheterization today with Dr. Zamarripa Further recommendations pending patient course Nurse practitioner note has been reviewed by physician. Signing provider agrees with the documented findings, assessment, and plan of care documented by [employer] as a scribe. Objective - Vital Signs Vital signs: Vital Signs Temp 98.4 F 10/18/23 08:29 Pulse 76 10/18/23 08:29 Resp 18 10/18/23 08:29 BP 134/89 10/18/23 08:31 Pulse Ox 96 10/18/23 08:29 FiO2 Intake & Output 10/17/23 10/18/23 10/18/23 18:59 06:59 18:59 Intake Total 83.675 143.189 91.364 Balance 83.675 143.189 91.364 Intake: Intake, IV Titration 83.675 143.189 91.364 Amount Heparin Sod,Pork in 0.45% 83.675 143.189 91.364 NaCl 25,000 unit In 0.45 % NaCl 1 250ml.bag @ 8. 819 UNITS/KG/HR 10.001 mls/hr IV .Q24H [facility] Rx#: [id number] - Labs CBC & Chem 7: 10/17/23 03:03 10/17/23 03:03 Labs: Abnormal Lab Results - Last 24 Hours (Table) 10/17/23 10/17/23 10/18/23 Range/Units 03:03 10:29 01:15 APTT 30.8 H (22.0-30.0) sec POC Glucose (mg/dL) (70-110) mg/dL Hemoglobin A1c 8.7 H (<=6.0) % Troponin I 0.039 H* (0.000-0.034) ng/mL 10/18/23 10/18/23 Range/Units 08:04 10:03 APTT 32.8 H (22.0-30.0) sec POC Glucose (mg/dL) 309 H (70-110) mg/dL Hemoglobin A1c (<=6.0) % Troponin I (0.000-0.034) ng/mL
[2023-10-18 11:33] LABS: Chol/HDL Ratio 5.79 Ratio; LDL Cholesterol,Calculated 106.8 mg/dL (0.0-131.0)
[2023-10-18] MEDS ORDERED: VERAPAMIL 2.5 MG/ML 2 ML AMP ONE (13:53)
[2023-10-18] MEDS ORDERED: LIDOCAINE 1% INJ 10MG/ML (20 ML MDV) ONE (13:53)
[2023-10-18] MEDS ORDERED: HEPARIN SODIUM 1,000 UN/ML (10ML VL) ONE (13:56)
[2023-10-18] MEDS ORDERED: fentaNYL (PF) 50 MCG/ML 2 ML AMP ONE (13:59)
[2023-10-18] MEDS: LIDOCAINE 1% INJ 10MG/ML (20 ML MDV) SQ ONE (14:05)
[2023-10-18] MEDS: fentaNYL (PF) 50 MCG/ML 2 ML AMP IVP ONE (14:07)
[2023-10-18] MEDS: MIDAZOLAM 2 MG/2 ML VIAL IVP ONE (14:07)
[2023-10-18] MEDS ORDERED: MORPHINE SULFATE 4 MG/ML SYRINGE ONE (14:10)
[2023-10-18] MEDS ORDERED: NITROGLYCERIN SL TABS 0.4 MG TAB SUBLINGUAL ONE (14:11)
[2023-10-18] MEDS: MORPHINE SULFATE 4 MG/ML SYRINGE IVP ONE (14:13)
[2023-10-18] MEDS: NITROGLYCERIN SL TABS 0.4 MG TAB SUBLINGUAL ONE (14:14)
[2023-10-18] MEDS: SODIUM CHLORIDE 0.9% 1,000 ML IV ONE (14:15)
[2023-10-18] MEDS: IOPAMIDOL-370 100ML BTL INJ ONE (14:23)
[2023-10-18] MEDS ORDERED: RX INFO: IV CONTRAST WAS GIVEN 1 EACH MISC MISCELLANE PRN (14:25)
--- NOTE | 2023-10-18 14:28 | P.PCN ---
Date of Procedure: 10/18/23 Operative Findings: CARDIAC CATHETERIZATION PERFORMING PHYSICIAN: Pa Zamarripa MD, RPVI PROCEDURE PERFORMED: 1. Selective right and left coronary angiogram 2. Left heart catheterization 3. Ultrasound-guided access of the right radial artery INDICATION: Acute non-ST elevation myocardial infarction COMPLICATION: None APPROACH: Right radial artery LEVEL OF SEDATION: Moderate with a sedation length of 17 minutes PROCEDURE DESCRIPTION: After obtaining an informed consent, the patient was brought to cardiac casting house laborer. Local anesthesia was performed using lidocaine subcutaneously. The right radial artery was cannulated using Seldinger technique, the guidewire passed easily, following that we advanced a 5-Ethiopian sheath dilator assembly, the wire and dilator were removed and sheath was flushed. Following that, 2 mg of verapamil along with 5000 unit heparin were given. Selective right and left coronary angiogram using a 5-Ethiopian JR4 and 4 Ethiopian JL 3.5 catheters. Following that we did left heart catheterization using the JR4 catheter which crossed the aortic valve The procedure was completed there was no complication. SELECTIVE CORONARY ANGIOGRAM: The right coronary artery: Large-caliber vessel and a dominant vessel. It is angiographically normal Left main: Is angiographically normal. Bifurcates into an LCx and LAD The left circumflex: Large-caliber vessel nondominant vessel and appears to be angiographically normal and gives rise into a large OM branch which seems to be normal The left anterior descending artery: Large-caliber vessel. Is angiographically normal with gives rise into first and second diagonal branches appear to be angiographically normal HEMODYNAMICS: LVEDP was 17 mmHg with no significant gradient across aortic valve CONCLUSION: 1. Normal coronary angiogram 2. Mildly elevated left-sided filling pressure POSTPROCEDURE MANAGEMENT: Medical treatment
[2023-10-18 14:49] LABS: Glucose,Whole Blood 176 mg/dL (70-110)
[2023-10-18] MEDS: SODIUM CHLORIDE 0.9% 1,000 ML IV SCH (15:40)
[2023-10-18 17:31] LABS: Glucose,Whole Blood 282 mg/dL (70-110)
[2023-10-18] MEDS: MORPHINE SULFATE 2 MG/ML SYRINGE IVP PRN (17:52)
[2023-10-18] MEDS ORDERED: DEXTROSE 50% SYRINGE 50 ML IVP PRN ×2 (17:55)
--- NOTE | 2023-10-18 18:01 | P.PN ---
Subjective Progress Note Date: 10/18/23 Currently denies any chest pain, palpitations or shortness of breath. Maintaining O2 sats in the 90s on room air. Denies lightheadedness dizziness or focal deficits. On admission elevated blood pressures of 190/109, lisinopril initiated with improvement in blood pressures today. A1c 8.7, hyperglycemic, blood sugars in the 200s. Anticoagulated on heparin drip. Objective - Vital Signs Vital signs: Vital Signs Temp 98.4 F 10/18/23 08:29 Pulse 67 10/18/23 11:16 Resp 18 10/18/23 11:16 BP 117/71 10/18/23 11:16 Pulse Ox 95 10/18/23 11:16 FiO2 Intake & Output 10/17/23 10/18/23 10/18/23 18:59 06:59 18:59 Intake Total 83.675 143.189 191.364 Balance 83.675 143.189 191.364 Intake: IV 100 Intake, IV Titration 83.675 143.189 91.364 Amount Heparin Sod,Pork in 0.45% 83.675 143.189 91.364 NaCl 25,000 unit In 0.45 % NaCl 1 250ml.bag @ 8. 819 UNITS/KG/HR 10.001 mls/hr IV .Q24H [facility] Rx#: [id number] - Exam PHYSICAL EXAM: VITAL SIGNS: [As above] GENERAL: Alert and oriented x 3, sitting up in bed, no acute distress HEENT: Normocephalic, atraumatic conjunctivae normal. eyes normal. NECK: Supple, no JVD. CARDIOVASCULAR: S1, S2 regular. No murmur RESPIRATION: Unlabored, equal air entry, clear to auscultation . ABDOMEN: Soft, nondistended, nontender . No guarding. +BS LEGS: No edema. no swelling NERVOUS SYSTEM: Cranial N 2-12 grossly normal.No focal deficits. Strength and sensation grossly intact. Skin: Warm and dry, no rash - Labs CBC & Chem 7: 10/17/23 03:03 10/17/23 03:03 Labs: Abnormal Lab Results - Last 24 Hours (Table) 10/18/23 10/18/23 10/18/23 Range/Units 01:15 08:04 08:04 APTT 30.8 H 32.8 H (22.0-30.0) sec POC Glucose (mg/dL) (70-110) mg/dL Triglycerides 343.00 H (0.00-149.00) mg/dL Cholesterol 212.00 H (0.00-200.00) mg/dL VLDL Cholesterol, Calc 68.60 H (5.00-40.00) mg/dL HDL Cholesterol 36.60 L (40.00-60.00) mg/dL 10/18/23 10/18/23 10/18/23 Range/Units 10:03 14:45 17:30 APTT (22.0-30.0) sec POC Glucose (mg/dL) 309 H 176 H 282 H (70-110) mg/dL Triglycerides (0.00-149.00) mg/dL Cholesterol (0.00-200.00) mg/dL VLDL Cholesterol, Calc (5.00-40.00) mg/dL HDL Cholesterol (40.00-60.00) mg/dL Assessment and Plan Assessment: Elevated troponins ,possible acute NSTEMI type II Accelerated hypertension on admission, improved Diabetes mellitus type 2, hemoglobin 8.7, Right ventricle moderately enlarged Moderate concentric left ventricular hypertrophy Family history of CAD, History of preeclampsia Morbid obesity, BMI 30 Plan: Continue on current medication regimen ,monitoring and symptomatic treatment. Anticoagulated on IV heparin drip. Echo ordered. Evaluated by cardiology and patient is scheduled for cardiac catheterization. Levemir insulin added to med regimen along with NovoLog sliding scale. Close monitoring of blood sugars. The impression and plan of care has been dictated as directed. : I performed a history and examination of this patient, discussed the same with the dictator. I agree with the dictator's note ,documented as a scribe. Any additional findings or plans will be noted.
[2023-10-18 20:01] LABS: Glucose,Whole Blood 401 mg/dL (70-110)
[2023-10-18] MEDS: INSULIN DETEMIR (LEVEMIR) 100 UNIT/ML SYR SQ SCH (20:31)
[2023-10-18] MEDS: INSULIN ASPART (NovoLOG) 100 UNIT/ML VIAL SQ SCH (20:31)
[2023-10-19 06:04] LABS: Glucose,Whole Blood 251 mg/dL (70-110)
[2023-10-19] MEDS ORDERED: HEPARIN SODIUM,PORCINE (1 ML) 2,500 UNIT in SODIUM CHLORIDE 0.9% 250 ML IRRIGATION PRN (07:00)
[2023-10-19] MEDS ORDERED: HEPARIN SODIUM,PORCINE 10,000 UNIT in SODIUM CHLORIDE 0.9% 1,000 ML IRRIGATION PRN (07:00)
[2023-10-19 11:26] LABS: Glucose,Whole Blood 216 mg/dL (70-110)
[2023-10-19] MEDS: ONDANSETRON 4 MG/2 ML VIAL IVP PRN (12:14)
--- NOTE | 2023-10-19 12:49 | P.DS ---
Providers Date of admission: 10/17/23 06:49 Expected date of discharge: 10/19/23 Attending physician: Jake Cervantes MD Consults: 10/17/23 06:49 Consult Physician Urgent Consulting Provider: Jim Morales Consult Reason/Comments: nstemi Do you want consulting provider notified?: Yes Primary care physician: Trina Cervantes Hospital Course: Final Diagnoses: Elevated troponins , status post cardiac cath reporting normal coronaries with mildly elevated left filling pressures Accelerated hypertension on admission, improved Diabetes mellitus type 2, hemoglobin 8.7,further diabetic teaching and adjustments in med regimen at follow-up in clinic with PCP Right ventricle moderately enlarged Moderate concentric left ventricular hypertrophy Family history of CAD, History of preeclampsia Morbid obesity, BMI 30 Hospital course: This is a 37-year-old female admitted with chest pain, accelerated hypertension and multiple other medical issues.Currently denies any chest pain, palpitations or shortness of breath. Maintaining O2 sats in the 90s on room air. Denies lightheadedness dizziness or focal deficits. On admission elevated blood pressures of 190/109, lisinopril initiated with improvement in blood pressures today. A1c 8.7, hyperglycemic, blood sugars in the 200s. Anticoagulated on heparin drip. Evaluated by cardiology, underwent cardiac catheterization, reporting normal coronary arteries with mildly elevated left filling pressures. Hypertensive, losartan-hydrochlorothiazide added to antihypertensive regimen. Patient will be discharged home today in a stable condition with guarded prognosis pending echo results, final DC recommendations and clearance per cardiology. Case management ensuring patient has a glucometer. Further diabetic teaching and medication adjustments in clinic at follow-up visit with PCP. The impression and plan of care has been dictated as directed. : I performed a history and examination of this patient, discussed the same with the dictator. I agree with the dictator's note ,documented as a scribe. Any additional findings or plans will be noted. Patient Condition at Discharge: Stable Plan - Discharge Summary Discharge Rx Participant: No New Discharge Prescriptions: New Atorvastatin [Lipitor] 40 mg PO HS #30 tab Metoprolol Tartrate [Lopressor] 25 mg PO BID #60 tab Losartan-Hctz 50-12.5 mg [Hyzaar 50-12.5] 1 each PO DAILY #90 tab Continue Glimepiride [Amaryl] 1 mg PO BID Tirzepatide [Mounjaro] 5 mg SQ WE metFORMIN HCL 500 mg PO DAILY Discontinued Atorvastatin [Lipitor] 10 mg PO DAILY Discharge Medication List Glimepiride [Amaryl] 1 mg PO BID 10/17/23 [History] Tirzepatide [Mounjaro] 5 mg SQ WE 10/17/23 [History] metFORMIN HCL 500 mg PO DAILY 10/17/23 [History] Atorvastatin [Lipitor] 40 mg PO HS #30 tab 10/19/23 [Rx] Losartan-Hctz 50-12.5 mg [Hyzaar 50-12.5] 1 each PO DAILY #90 tab 10/19/23 [Rx] Metoprolol Tartrate [Lopressor] 25 mg PO BID #60 tab 10/19/23 [Rx] Follow up Appointment(s)/Referral(s): Tirna Cervantes DO [Primary Care Provider] - 3 Days Activity/Diet/Wound Care/Special Instructions: Hemoglobin 8.7, further diabetic teaching and adjustments in med regimen at follow-up in clinic with PCP
--- NOTE | 2023-10-19 13:08 | P.PN ---
Subjective HISTORY OF PRESENT ILLNESS: 10/17/2023 This is a 37-year-old female with no previous cardiac history. She has a past medical history of diabetes mellitus type 2, hypertension, enlarged ventricle per patient, asthma. We have been asked to evaluate the patient for non-ST elevated myocardial infarction. Patient states that last evening she started vomiting and she developed upper arm bilateral pain that went into the shoulders and into the back of her shoulder. She denies having any chest pain. No shortness of breath. She did have some sweating. No lightheadedness or dizziness. She denies any recent viral infection. Patient is seen today in the emergency center waiting for a bed on the cardiac stepdown unit. Patient has been started on heparin drip. Patient presented with blood pressure 190/109 and now 170/103. Heart rate 92. EKG sinus rhythm no acute ST-T wave changes Chest x-ray: No acute process CT angiogram of the chest and abdomen revealed no aortic dissection or aortic aneurysm. Hepatic steatosis. CBC INR, D-dimer, electrolytes renal function all within normal limits. Glucose 264. Troponin 0.105 and 0.059. ALT 48 otherwise liver function test are normal. Lipase 161. Urinalysis trace protein and trace glucose. Influenza A, influenza B, RSV, COVID-19 not detected. Home cardiac medications: None Echocardiogram performed 01/19/2019 revealed EF of 55 to 60%, moderate concentric left ventricular hypertrophy, right ventricle moderately enlarged. Trace mitral regurgitation. Mild tricuspid regurgitation. No pulmonary hypertension. 10/18/2023 Patient examined this morning at the bedside. Patient remains in the emergency room. Patient currently denies any chest pain or pressure. She denies any shortness of breath. She remains on IV heparin. Blood pressure is better controlled today. Most recent reading 134/89. 10/19/2023 Patient is status postcardiac catheterization yesterday with Dr. Zamarripa revealing normal coronary arteries. Patient examined this morning at bedside. Patient denies chest pain or pressure. She denies shortness of breath. Vital signs are stable. Blood pressure remains somewhat elevated with a systolic in the 160s. PHYSICAL EXAM: VITAL SIGNS: Reviewed. GENERAL: Well-developed in no acute distress. NECK: Supple. No JVD or thyromegaly LUNGS: Respirations even and unlabored. Lungs essentially clear to auscultation bilaterally. HEART: Regular rate and rhythm. S1 and S2 heard. EXTREMITIES: Normal range of motion. No clubbing or cyanosis. Peripheral pulses intact. No lower extremity edema ASSESSMENT: Hypertensive urgency, improved Elevated troponins, may be secondary to uncontrolled blood pressure on admission, status postcardiac catheterization revealing normal coronary arteries Diabetes mellitus type 2 Right ventricle moderately enlarged Moderate concentric left ventricular hypertrophy History of preeclampsia per patient Family history of CAD PLAN: 2D echo ordered. Await results Continue current cardiac medications Discontinue lisinopril Begin losartanhydrochlorothiazide Continue to monitor blood pressure Patient may be discharged home this evening if echo is resulted otherwise anticipate discharge home tomorrow. Nurse practitioner note has been reviewed by physician. Signing provider agrees with the documented findings, assessment, and plan of care documented by CROP PULLER as a scribe. Objective - Vital Signs Vital signs: Vital Signs Temp 98.1 F 10/19/23 08:11 Pulse 70 10/19/23 10:24 Resp 18 10/19/23 10:24 BP 166/88 10/19/23 08:11 Pulse Ox 96 10/19/23 08:11 FiO2 Intake & Output 10/18/23 10/19/23 10/19/23 18:59 06:59 18:59 Intake Total 191.364 240 110 Balance 191.364 240 110 Weight 113.398 kg Intake: IV 100 Intake, IV Titration 91.364 Amount Heparin Sod,Pork in 0.45% 91.364 NaCl 25,000 unit In 0.45 % NaCl 1 250ml.bag @ 8. 819 UNITS/KG/HR 10.001 mls/hr IV .Q24H LEATHA Rx#: [id number] Oral 240 110 Other: Voiding Method Toilet Toilet # Voids 1 - Labs CBC & Chem 7: 10/17/23 03:03 10/17/23 03:03 Labs: Abnormal Lab Results - Last 24 Hours (Table) 10/18/23 10/18/23 10/18/23 Range/Units 14:45 17:30 20:00 POC Glucose (mg/dL) 176 H 282 H 401 H (70-110) mg/dL 10/19/23 10/19/23 Range/Units 06:02 11:25 POC Glucose (mg/dL) 251 H 216 H (70-110) mg/dL
--- NOTE | 2023-10-19 16:44 | CA ---
Transthoracic Echo Report Name: Berna Buckner Age: 37 Gender: F : 1985 Exam Date: 10/18/2023 17:48 Exam Location: [facility] Ht (in): 68 Wt (lb): 250 Ordering Physician: Lacey Pitts Attending/Referring Phys: [id number], Gisselle Bait Man Lore Armenta RDCS Procedure CPT: Indications: LVF Cardiac Hx: Technical Quality: Technically difficult study Contrast 1: Definity Total Dose (mL): 2 Contrast 2: Total Dose (mL): MEASUREMENTS (Male / Female) Normal Values 2D ECHO LV Diastolic Diameter PLAX 4.1 cm 4.2 - 5.9 / 3.9 - 5.3 cm LV Systolic Diameter PLAX 2.5 cm IVS Diastolic Thickness 1.7 cm 0.6 - 1.0 / 0.6 - 0.9 cm LVPW Diastolic Thickness 1.9 cm 0.6 - 1.0 / 0.6 - 0.9 cm LV Relative Wall Thickness 0.9 RV Internal Dim ED PLAX 3.3 cm LA Volume 73.5 cm??? 18 - 58 / 22 - 52 cm??? LA Volume Index 30.8 cm???/m??? 16 - 28 cm???/m??? M-MODE Aortic Root Diameter MM 3.0 cm LA Systolic Diameter MM 3.8 cm LA Ao Ratio MM 1.3 AV Cusp Separation MM 2.0 cm DOPPLER AV Peak Velocity 149.4 cm/s AV Peak Gradient 8.9 mmHg AV Mean Velocity 100.0 cm/s AV Mean Gradient 4.6 mmHg AV Velocity Time Integral 29.3 cm LVOT Peak Velocity 101.9 cm/s LVOT Peak Gradient 4.2 mmHg LVOT Velocity Time Integral 17.9 cm MV Area PHT 3.1 cm??? Mitral E Point Velocity 88.5 cm/s Mitral A Point Velocity 101.1 cm/s Mitral E to A Ratio 0.9 MV Deceleration Time 248.0 ms MV E' Velocity 6.5 cm/s Mitral E to MV E' Ratio 13.6 TR Peak Velocity 171.9 cm/s TR Peak Gradient 11.8 mmHg Right Ventricular Systolic Press 16.8 mmHg FINDINGS Left Ventricle Severely increased left ventricular wall thickness. Left ventricular cavity size normal. Normal left ventricular systolic function with no obvious regional wall motion abnormalities. Left ventricular ejection fraction is estimated at 55-60 %. Grade 1 diastolic dysfunction. Right Ventricle Normal right ventricular size and function. Right ventricular systolic pressure within normal limits. Right Atrium Normal right atrial size. Left Atrium Mildly increased left atrial volume. Mildly increased left atrial area. Mitral Valve Structurally normal mitral valve. No mitral stenosis, regurgitation or prolapse. Aortic Valve Trileaflet aortic valve. No aortic valve stenosis or regurgitation. Tricuspid Valve Structurally normal tricuspid valve. Mild tricuspid regurgitation. Pulmonic Valve Structurally normal pulmonic valve. Pericardium No pericardial effusion. Aorta Normal size aortic root and proximal ascending aorta. CONCLUSIONS Normal LV function Previewed by: Dr. Hubert Sandoval MD (Electronically Signed) Final Date: 19 October 2023 16:44
[2023-10-19 17:21] VITALS: BP 144/77; PULSE 66; RESP 20; TEMP 97.8
[2023-10-19 17:23] LABS: Glucose,Whole Blood 258 mg/dL (70-110)
[2023-10-19] MEDS: ACETAMINOPHEN TAB 325 MG TAB PO PRN (17:24)
[2023-10-20] MEDS ORDERED: LOSARTAN-HCTZ 50-12.5 MG 1 EACH TAB PO SCH (09:00)
== END 2023-10-19 18:29 | disposition home or self-care (01) | DRG 282 ==
LOC: EC 01:37 → 3SCARD 06:49
PROVIDERS: ADMIT Family Medicine; ATTEND Family Medicine
PROC: 4A023N7 Measurement of Cardiac Sampling and Pressure, Left Heart, Percutaneous Approach (ICD-10-PCS; principal; 2023-10-18 17:00)
PROC: B2111ZZ Fluoroscopy of Multiple Coronary Arteries using Low Osmolar Contrast (ICD-10-PCS; 2023-10-18 17:00)
DX: I21.4 Non-ST elevation (NSTEMI) myocardial infarction (principal); E66.01 Morbid (severe) obesity due to excess calories; F41.9 Anxiety disorder, unspecified; I16.0 Hypertensive urgency; E11.9 Type 2 diabetes mellitus without complications; I10 Essential (primary) hypertension; Z68.30 Body mass index [BMI] 30.0-30.9, adult; Z11.52 Encounter for screening for COVID-19; Z82.49 Family history of ischemic heart disease and other diseases of the circulatory system; Z91.148 Patient's other noncompliance with medication regimen for other reason; Z88.8 Allergy status to other drugs, medicaments and biological substances
CPT/HCPCS: 36415; 71046; 71275; 74174; 76937; 80053; 80061; 81003; 82150; 83036; 83690; 83735; 84484; 85025; 85379; 85610; 85730; 87636; 93005; 93306; 93458; 96365; 96366; 96375; 99285

== ENCOUNTER → 2024-09-16 | Outpatient (CLI) | payer BC ==
--- NOTE | 2024-09-16 10:15 | MR ---
INDICATION: Patient age:Female; 38 years old; Reason for study: M54.12 RADICULOPATHY, CERVICAL REGION; PHH. COMPARISON: None. TECHNIQUE: Multi planar, multi sequence imaging was performed of the cervical spine. No Gadolinium wa s given. FINDINGS: Alignment: The cervical vertebral bodies have preserved heights. Alignment is within normal limits gi bryanna patient positioning. Bones: T1/T2 hyperintense benign bone island within the T1 vertebral body. No abnormal STIR signal ab normality. Cord: The spinal cord is unremarkable with regards to their signal intensity and morphology. Discs: Minimal disc desiccation involving the C2-C3 and C3-C4 disc. The remaining intervertebral disc signal is maintained. C2-C3: Posterior disc osteophyte complex with mild effacement of the anterior thecal sac. No signific ant central canal stenosis. Bilateral facet arthropathy. No neural foraminal stenosis. C3-C4: Posterior disc osteophyte complex with minimal effacement of the anterior thecal sac. No signi ficant central canal stenosis. Uncovertebral joint hypertrophy with mild bilateral neural foraminal stenosis. C4-C5: No significant disc pathology. The spinal canal is patent. Bilateral facet arthropathy. No ap ral foraminal stenosis. C5-C6: No significant disc pathology. The spinal canal is patent. No neural foraminal stenosis. C6-C7: No significant disc pathology. The spinal canal is patent. No neural foraminal stenosis. C7-T1: No significant disc pathology. The spinal canal is patent. No neural foraminal stenosis. Other: None. IMPRESSION: 1. No evidence for disc herniation or significant spinal canal stenosis. 2. 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 [facility], , 09/16/2024 10:12 AM
== END | disposition home or self-care (01) ==
LOC: RADMRIMAIN 08:39
PROVIDERS: ATTEND Family Medicine
DX: M50.11 Cervical disc disorder with radiculopathy, high cervical region (principal)
CPT/HCPCS: 72141